=== PATIENT | female | born 1995 | race Hispanic/Latino ===

== ENCOUNTER 2018-10-29 22:17 | Emergency (ER) | payer SELFPAY ==
[2018-10-29] MEDS ORDERED: NA CHLORIDE 0.9% 1,000 ML ONE (23:03)
[2018-10-29 23:13] LABS: Absolute Lymphocytes (CBC) 2.3 K/uL (0.7-4.9); Absolute Neutrophil 7.3 K/uL (1.8-8.0); Basophils % 0.7 % (0-1.3); Eosinophils % 2.3 % (0-4.4); Hematocrit 36.5 % (36.0-45.0); Lymphocytes % 21.1 % (15.3-44.8); MPV 8.1 fL (7.6-11.3); Monocytes % 9.1 % (3.3-12.3); RBC Red Blood Cell Count 3.78 M/uL (3.86-4.86)
[2018-10-29 23:17] LABS: Protime INR 0.97
[2018-10-29 23:41] LABS: Barbiturates NEGATIVE (NEGATIVE); Benzodiazepines POSITIVE (NEGATIVE); Cocaine NEGATIVE (NEGATIVE); METHAMPHETAM NEGATIVE (NEGATIVE); Methadone NEGATIVE (NEGATIVE); Opiates POSITIVE (NEGATIVE); Phencyclidine NEGATIVE (NEGATIVE); THC Cannibis POSITIVE (NEGATIVE)
[2018-10-29 23:41] LABS: ALT/SGPT 29 U/L (12-78); AST/SGOT 17 U/L (15-37); Albumin 3.5 g/dL (3.4-5.0); Alkaline Phosphatase 64 U/L (45-117); BUN Blood Urea Nitrogen 9 mg/dL (7-18); Bicarbonate 34 mmol/L (21-32); Bilirubin Direct < 0.1 mg/dL (0-0.2); Bilirubin Total 0.1 mg/dL (0.2-1.0); Glucose Level 79 mg/dL (74-106); Potassium 3.9 mmol/L (3.5-5.1); Protein, Total 6.7 g/dL (6.4-8.2); Sodium Level 143 mmol/L (136-145)
[2018-10-29 23:49] LABS: Urine Blood NEGATIVE (NEG); Urine Glucose NEGATIVE (NEG); Urine Protein TRACE (NEG); Urine pH 8.5 (5.0-7.0)
--- NOTE | 2018-10-30 00:11 | ER ---
Nurse's Notes [facility] Name: Mare Almonte Age: 23 yrs Sex: Female : 1995 Arrival Date: 10/29/2018 Time: 22:18 Bed 4 Private MD: Diagnosis: Abuse of non-psychoactive substances;Urinary tract infection, site not specified Presentation: 10/29 22:28 Presenting complaint: Mother states: pt drowsy, overdose of unknown substance. pt ak1 states she took 1.5 bars xanax. pt also stated she took hydrocodone. pt [facility] patient. pt started day 2 of out patient rehab for cocaine, weed, soma, xanax. pt currently on zoloft 100mg, vistaril 25mg. Transition of care: patient was not received from another setting of care. Onset of symptoms is unknown. Risk Assessment: Do you want to hurt yourself or someone else? Patient reports desire/thoughts of hurting themselves or someone else. Provider notified. Care prior to arrival: None. 22:28 Method Of Arrival: Wheelchair ak1 22:28 Acuity: BEHZAD 2 ak1 23:00 Initial Sepsis Screen: Does the patient meet any 2 criteria? No. Patient's initial ea sepsis screen is negative. Does the patient have a suspected source of infection? No. Patient's initial sepsis screen is negative. Triage Assessment: 22:30 General: Appears drooling. Behavior is drowsy, listless. ak1 Historical: - Allergies: 22:30 No Known Allergies; ak1 - Home Meds: 22:30 Zoloft 100 mg Oral tab 1 tab once daily [Active]; Vistaril 25 mg Oral cap [Active]; ak1 - PMHx: 22:30 Depression; ak1 - PSHx: 22:30 None; ak1 - Immunization history:: Adult Immunizations unknown. - Social history:: Smoking status: Patient uses tobacco products, smokes one pack cigarettes per day. - Ebola Screening: : No symptoms or risks identified at this time. - Family history:: not pertinent. Screenin:00 Abuse screen: Denies threats or abuse. Nutritional screening: No deficits noted. ea Tuberculosis screening: No symptoms or risk factors identified. Fall Risk IV access (20 points). Assessment: 23:00 General: Appears in no apparent distress. Behavior is drowsy. Pain: Denies pain. Neuro: ea Level of Consciousness is responds to verbal stimuli. Oriented to person. Cardiovascular: Patient's skin is warm and dry. Respiratory: Airway is patent Respiratory effort is even, unlabored, Respiratory pattern is regular, symmetrical, snoring. GI: Abdomen is flat, Bowel sounds present X 4 quads. Derm: Skin is pink, warm \T\ dry. 10/30 00:50 Reassessment: Patient and/or family updated on plan of care and expected duration. Pain ea level reassessed. Pt resting with eyes closed, awakes with verbal stimuli. No s/s of pain or discomfort noted at this time. 01:18 Reassessment: Patient and/or family updated on plan of care and expected duration. Pain ea level reassessed. Patient is alert, oriented x 3, equal unlabored respirations, skin warm/dry/pink. Discharge instructions given to patient and family, verbalized the understanding of instruction. Patient states symptoms have improved. Psych: 10/29 23:35 Subjective: Pt denies trying to hurt self. Objective: Patient is Groggy Speech is slow, ea slurred. Interventions: Removed personal items and placed in bag. Patient placed in hospital gown. Searched person for dangerous items. Suicide Risk Assessment: Sad Person Scale: Sex of patient: Female: Score 0 points. Age of patient: Score 1 point if patient 15-34. Substance Abuse: Score 1 point if patient abuses alcohol or drugs. Social Support: Score 0 if social support is present/available. Safety Checks: Personal items have been removed. Door is open. Visitors are present. personal items given to family. pt reports she took a Xanax, denies other substance abuse. Vital Signs: 22:30 BP 91 / 59; Pulse 78; Resp 14; Temp 97.2(TE); Pulse Ox 98% on R/A; Weight 56.7 kg (R); ak1 Height 5 ft. 4 in. (162.56 cm) (R); 23:00 BP 113 / 61; Pulse 67; Resp 16; Pulse Ox 96% on R/A; ea 10/30 00:52 BP 103 / 67; Pulse 74; Resp 16; Pulse Ox 96% on R/A; ea 01:21 BP 116 / 68; Pulse 70; Resp 18; Temp 98(O); Pulse Ox 97% on R/A; ea 10/29 22:30 Body Mass Index 21.46 (56.70 kg, 162.56 cm) ak1 ED Course: 10/29 22:18 Patient arrived in ED. am2 22:30 Triage completed. ak1 22:30 Arm band placed on Patient placed in an exam room, Patient notified of wait time. ak1 22:38 Cory Garcia MD is Attending Physician. diana 22:50 Sally Strickland, AMEBR is Primary Nurse. ea 23:00 Patient has correct armband on for positive identification. Placed in gown. Bed in low ea position. Call light in reach. Side rails up X2. campus monitor on. Pulse ox on. NIBP on. Sitter at bedside. 23:00 Inserted saline lock: 20 gauge in left antecubital area, using aseptic technique. Blood ea collected. 23:15 Straight cath inserted, using sterile technique, 16 Fr. Specimen obtained. Returned ea clear yellow urine. Patient tolerated well. 02 00:54 No provider procedures requiring assistance completed. ea 01:18 IV discontinued, intact, bleeding controlled, No redness/swelling at site. Pressure ea dressing applied. Administered Medications: 10/29 23:00 Drug: NS 0.9% 1000 ml Route: IV; Rate: 1 bolus; Site: right antecubital; ea 10/30 00:53 Follow up: Response: No adverse reaction; IV Status: Completed infusion; IV Intake: ea 1000ml 00:30 Drug: Rocephin - (cefTRIAXone) 1 grams Route: IVPB; Infused Over: 30 mins; Site: left ea antecubital; 01:22 Follow up: Response: No adverse reaction; IV Status: Completed infusion ea Intake: 00:53 IV: 1000ml; Total: 1000ml. ea Outcome: 00:10 Discharge ordered by . diana 01:19 Discharged to home via wheelchair, with family. ea 01:19 Condition: improved 01:19 Discharge instructions given to family, Instructed on discharge instructions, follow up and referral plans. medication usage, Demonstrated understanding of instructions, follow-up care, medications. 01:22 Patient left the ED. ea Signatures: Cory Garcia MD MD cha Krenek, Amber, RN RN ak1 Angelina Morgan am2 Sally Strickland RN RN ea Corrections: (The following items were deleted from the chart) 01:21 01:18 Reassessment: Patient and/or family updated on plan of care and expected ea duration. Pain level reassessed. Patient is alert, oriented x 3, equal unlabored respirations, skin warm/dry/pink. Patient states symptoms have improved. ea
--- NOTE | 2018-10-30 00:12 | EDPHYS ---
Physician Documentation [facility] Name: Mare Almonte Age: 23 yrs Sex: Female : 1995 Arrival Date: 10/29/2018 Time: 22:18 Bed 4 Private MD: ED Physician Cory Garcia HPI: 10/29 22:48 This 23 yrs old Female presents to ER via Wheelchair with complaints of diana Suicidal Ideation, Possible Overdose. 22:48 The patient presents to the emergency department with anxiety, depression, a history of diana substance abuse, Type: arron, bars. Onset: The symptoms/episode began/occurred just prior to arrival. Past psychiatric history: Prior diagnosis: depression, Psychiatric medications include: Zoloft. Associated signs and symptoms: The patient has no apparent associated signs or symptoms. Severity of symptoms: At their worst the symptoms were mild in the emergency department the symptoms are unchanged. The patient has experienced similar episodes in the past, multiple times. Historical: - Allergies: 22:30 No Known Allergies; ak1 - Home Meds: 22:30 Zoloft 100 mg Oral tab 1 tab once daily [Active]; Vistaril 25 mg Oral cap [Active]; ak1 - PMHx: 22:30 Depression; ak1 - PSHx: 22:30 None; ak1 - Immunization history:: Adult Immunizations unknown. - Social history:: Smoking status: Patient uses tobacco products, smokes one pack cigarettes per day. - Ebola Screening: : No symptoms or risks identified at this time. - Family history:: not pertinent. ROS: 22:48 Constitutional: Negative for fever, chills, and weight loss, Eyes: Negative for injury, diana pain, redness, and discharge, ENT: Negative for injury, pain, and discharge, Neck: Negative for injury, pain, and swelling, Cardiovascular: Negative for chest pain, palpitations, and edema, Respiratory: Negative for shortness of breath, cough, wheezing, and pleuritic chest pain, Abdomen/GI: Negative for abdominal pain, nausea, vomiting, diarrhea, and constipation, Back: Negative for injury and pain, : Negative for injury, bleeding, discharge, and swelling, MS/Extremity: Negative for injury and deformity, Skin: Negative for injury, rash, and discoloration, Neuro: Negative for headache, weakness, numbness, tingling, and seizure, Allergy/Immunology: Negative for hives, rash, and allergies, Endocrine: Negative for neck swelling, polydipsia, polyuria, polyphagia, and marked weight changes, Hematologic/Lymphatic: Negative for swollen nodes, abnormal bleeding, and unusual bruising. 22:48 Psych: Positive for anxiety, depression, drug dependence. Exam: 22:48 Constitutional: This is a well developed, well nourished patient who is awake, alert, diana and in no acute distress. Head/Face: Normocephalic, atraumatic. Eyes: Pupils equal round and reactive to light, extra-ocular motions intact. Lids and lashes normal. Conjunctiva and sclera are non-icteric and not injected. Cornea within normal limits. Periorbital areas with no swelling, redness, or edema. ENT: Nares patent. No nasal discharge, no septal abnormalities noted. Tympanic membranes are normal and external auditory canals are clear. Oropharynx with no redness, swelling, or masses, exudates, or evidence of obstruction, uvula midline. Mucous membranes moist. Neck: Trachea midline, no thyromegaly or masses palpated, and no cervical lymphadenopathy. Supple, full range of motion without nuchal rigidity, or vertebral point tenderness. No Meningismus. Chest/axilla: Normal chest wall appearance and motion. Nontender with no deformity. No lesions are appreciated. Cardiovascular: Regular rate and rhythm with a normal S1 and S2. No gallops, murmurs, or rubs. Normal PMI, no JVD. No pulse deficits. Respiratory: Lungs have equal breath sounds bilaterally, clear to auscultation and percussion. No rales, rhonchi or wheezes noted. No increased work of breathing, no retractions or nasal flaring. Abdomen/GI: Soft, non-tender, with normal bowel sounds. No distension or tympany. No guarding or rebound. No evidence of tenderness throughout. Back: No spinal tenderness. No costovertebral tenderness. Full range of motion. Female : Normal external genitalia. Skin: Warm, dry with normal turgor. Normal color with no rashes, no lesions, and no evidence of cellulitis. MS/ Extremity: Pulses equal, no cyanosis. Neurovascular intact. Full, normal range of motion. Psych: Awake, alert, with orientation to person, place and time. Behavior, mood, and affect are within normal limits. 22:48 Neuro: Orientation: is normal, appropriate for stated age, slow, Mentation: slow to respond, Memory: immediate memory is intact, Cranial nerves: grossly normal, is grossly normal based on the patient's age, no acute changes, Cerebellar function: is grossly normal based on the patient's age, no acute changes, Motor: moves all fours, Sensation: no obvious gross deficits, appropriate Gait: not tested. Deep tendon reflexes are 2+ (normal) in the bilateral brachioradialis, bicep, tricep and patellar and Achilles tendons. Vital Signs: 22:30 BP 91 / 59; Pulse 78; Resp 14; Temp 97.2(TE); Pulse Ox 98% on R/A; Weight 56.7 kg (R); ak1 Height 5 ft. 4 in. (162.56 cm) (R); 23:00 BP 113 / 61; Pulse 67; Resp 16; Pulse Ox 96% on R/A; ea 10/30 00:52 BP 103 / 67; Pulse 74; Resp 16; Pulse Ox 96% on R/A; ea 01:21 BP 116 / 68; Pulse 70; Resp 18; Temp 98(O); Pulse Ox 97% on R/A; ea 10/29 22:30 Body Mass Index 21.46 (56.70 kg, 162.56 cm) ak1 MDM: 10/29 22:38 Patient medically screened. [facility] 22:51 Data reviewed: vital signs, nurses notes, lab test result(s), EKG, radiologic studies, [facility] CT scan, plain films. 10/29 22:48 Order name: Acetaminophen; Complete Time: 00:08 [facility] 10/29 22:48 Order name: Basic Metabolic Panel; Complete Time: 00:08 [facility] 10/29 22:48 Order name: CBC with Diff; Complete Time: 00:08 [facility] 10/29 22:48 Order name: ETOH Level; Complete Time: 00:08 [facility] 10/29 22:48 Order name: Hepatic Function; Complete Time: 00: [facility] 10/29 22:48 Order name: PT-INR; Complete Time: 00:08 [facility] 10/29 22:48 Order name: Ptt, Activated; Complete Time: 00:08 [facility] 10/29 22:48 Order name: Salicylate; Complete Time: 00:08 [facility] 10/29 22:48 Order name: Urine Drug Screen; Complete Time: 00:08 [facility] 10/29 23:22 Order name: Urine Dipstick--Ancillary (enter results); Complete Time: 00:08 [facility] 10/29 23:22 Order name: Urine --Ancillary (enter results); Complete Time: 00:08 [facility] 10/29 22:48 Order name: Urine Test (obtain specimen); Complete Time: 23:28 [facility] 10/29 22:48 Order name: EKG; Complete Time: 22:51 [facility] 10/29 22:48 Order name: EKG - Nurse/Tech; Complete Time: 22:51 [facility] 10/29 22:48 Order name: IV Saline Lock; Complete Time: 22:51 [facility] 10/29 22:48 Order name: Labs collected and sent; Complete Time: 23:29 [facility] 10/29 22:48 Order name: Urine Dipstick-Ancillary (obtain specimen); Complete Time: 23:29 [facility] Administered Medications: 23:00 Drug: NS 0.9% 1000 ml Route: IV; Rate: 1 bolus; Site: right antecubital; 10/30 00:53 Follow up: Response: No adverse reaction; IV Status: Completed infusion; IV Intake: ea 1000ml 00:30 Drug: Rocephin - (cefTRIAXone) 1 grams Route: IVPB; Infused Over: 30 mins; Site: left ea antecubital; 01:22 Follow up: Response: No adverse reaction; IV Status: Completed infusion ea Disposition: 10/30/18 00:10 Discharged to Home. Impression: Abuse of non-psychoactive substances, Urinary tract infection, site not specified. - Condition is Stable. - Discharge Instructions: Substance Use Disorder, Urinary Tract Infection, Adult, Urinary Tract Infection, Adult, [id number]. - Prescriptions for Bactrim DS 800- 160 mg Oral Tablet - take 1 tablet by ORAL route every 12 hours for 5 days; 10 tablet. - Medication Reconciliation Form, Thank You Letter, Antibiotic Education, Prescription Opioid Use form. - Follow up: Private Physician; When: 2 - 3 days; Reason: Recheck today's complaints, Continuance of care, Re-evaluation by your physician. - Problem is new. - Symptoms have improved. Signatures: Dispatcher [employer] oCry Pollard MD MD cha Krenek, Amber RN RN ak1 Sally Strickland RN RN bri Corrections: (The following items were deleted from the chart) 01:22 00:10 10/30/2018 00:10 Discharged to Home. Impression: Abuse of non-psychoactive ea substances; Urinary tract infection, site not specified. Condition is Stable. Forms are Medication Reconciliation Form, Thank You Letter, Antibiotic Education, Prescription Opioid Use. Follow up: Private Physician; When: 2 - 3 days; Reason: Recheck today's complaints, Continuance of care, Re-evaluation by your physician. Problem is new. Symptoms have improved. diana
[2018-10-30] MEDS ORDERED: CEFTRIAXONE/SWI 1gm 1 GM/10 ML SYR ONE (00:39)
--- NOTE | 2018-10-30 07:15 | EKG ---
Test Date: 2018-10-29 Test Time: 23:19:56 Instructor Of Education: CHITO MEASUREMENT RESULTS: Intervals: Rate: 70 MS: 172 QRSD: 88 QT: 412 QTc: 444 Lamar: P: 55 MS: 172 QRS: 77 T: 27 INTERPRETIVE STATEMENTS: Normal sinus rhythm Normal ECG No previous ECG available for comparison Electronically Signed On 10-30-18 07:14:54 EMPLOYEE RELATIONS ADVISOR by Adrian Garcia
== END 2018-10-30 01:22 | disposition home or self-care (01) ==
LOC: ER 22:17
DX: R45.851 Suicidal ideations (principal); F55.8 Abuse of other non-psychoactive substances; N39.0 Urinary tract infection, site not specified; F32.9 Major depressive disorder, single episode, unspecified
CPT/HCPCS: 36415; 51702; 80048; 80076; 80307; 80320; 80329; 81003; 81025; 85025; 85610; 85730; 93005; 96361; 96365; 99285; J0696; J7030

== ENCOUNTER 2019-01-11 07:58 | Emergency (ER) | payer SELFPAY ==
[2019-01-11] MEDS ORDERED: DEXAMETHASONE 10 MG/ML VIAL ONE (08:27)
[2019-01-11] MEDS ORDERED: MAGNE/ALUM HYDROXD 30 ML UCUP ONE (08:27)
[2019-01-11] MEDS ORDERED: IBUPROFEN 400 MG TAB ONE (08:28)
[2019-01-11] MEDS ORDERED: LIDOCAINE VISCOUS 2% SOLN 15 ML UDC ONE (08:28)
[2019-01-11] MEDS ORDERED: NA CHLORIDE 0.9% 1,000 ML ONE (08:58)
--- NOTE | 2019-01-11 09:49 | ER ---
Nurse's Notes [facility] Name: Mare Almonte Age: 23 yrs Sex: Female : 1995 Arrival Date: 01/11/2019 Time: 08:00 Bed 14 Private MD: Diagnosis: Acute tonsillitis Presentation: 01/11 08:07 Presenting complaint: Patient states: i had this sore throat for 3 days now and i hj noticed the R side of my neck is swollen; reports fever; takes gabapentin for back pain;. Transition of care: patient was not received from another setting of care. Onset of symptoms was January 11, 2019. Risk Assessment: Do you want to hurt yourself or someone else? Patient reports no desire to harm self or others. Initial Sepsis Screen: Does the patient meet any 2 criteria? Temp <36.0*C (96.8*F)) or > 38.3*C (100.9*F). Yes Does the patient have a suspected source of infection? Yes:. Care prior to arrival: None. 08:07 Method Of Arrival: Ambulatory 08:07 Acuity: BEHZAD 4 hj Triage Assessment: 08:11 General: Appears in no apparent distress. uncomfortable, Behavior is calm, cooperative, hj appropriate for age. 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 - Social history:: Smoking status: Patient uses tobacco products, Patient uses alcohol. - Ebola Screening: : Patient negative for fever greater than or equal to 101.5 degrees Fahrenheit, and additional compatible Ebola Virus Disease symptoms Patient denies exposure to infectious person Patient denies travel to an Ebola-affected area in the 21 days before illness onset. Screenin:10 Abuse screen: Denies threats or abuse. Denies injuries from another. Nutritional hj screening: No deficits noted. Tuberculosis screening: No symptoms or risk factors identified. Fall Risk None identified. Assessment: 08:11 Pain: Complains of pain in throat. Respiratory: Airway is patent Respiratory effort is hj even, unlabored, Respiratory pattern is regular, symmetrical, EENT: 08:11 General: Appears in no apparent distress. uncomfortable, Behavior is calm, cooperative, hj appropriate for age. Neuro: Level of Consciousness is awake, alert, obeys commands, Oriented to person, place, time, situation, Appropriate for age. Cardiovascular: Capillary refill < 3 seconds Patient's skin is warm and dry. GI: No signs and/or symptoms were reported involving the gastrointestinal system. : No signs and/or symptoms were reported regarding the genitourinary system. EENT: Throat has enlarged tonsils. Derm: No signs and/or symptoms reported regarding the dermatologic system. Musculoskeletal: No signs and/or symptoms reported regarding the musculoskeletal system. Vital Signs: 08:06 BP 107 / 67; Pulse 101; Resp 18; Temp 101.8(TE); Pulse Ox 98% on R/A; Weight 58.97 kg; hj Height 5 ft. 3 in. (160.02 cm); Pain 10/10; 08:32 BP 111 / 61; Pulse 98; Resp 18; Pulse Ox 98% on R/A; hj 09:21 BP 97 / 63; Pulse 85; Resp 18; Temp 98.8(TE); Pulse Ox 100% on R/A; hj 08:06 Body Mass Index 23.03 (58.97 kg, 160.02 cm) ED Course: 08:00 Patient arrived in ED. mr 08:02 [facility]C [facility]. kb 08:02 Gilda Esparza MD is Attending Physician. kb 08:02 Skyler Le, AMBER is Primary Nurse. hj 08:08 Triage completed. hj 08:11 Arm band placed on right wrist. hj 08:11 Patient has correct armband on for positive identification. Placed in gown. Bed in low hj position. Call light in reach. Adult w/ patient. 08:22 Strep Sent. hj 08:47 Initial lab(s) drawn, by me, sent to lab. Inserted saline lock: 20 gauge in right dh3 antecubital area, using aseptic technique. Blood collected. 10:10 No provider procedures requiring assistance completed. intact, bleeding controlled, No hj redness/swelling at site. Pressure dressing applied. Administered Medications: 08:13 Drug: GI Cocktail without - (Maalox Suspension 30 ml, Lidocaine Liquid 2 % 15 hj ml) Route: PO; 08:41 Follow up: Response: No adverse reaction hj 08:13 Drug: Ibuprofen 800 mg Route: PO; hj 08:41 Follow up: Response: No adverse reaction hj 08:13 Drug: Decadron 10 mg Route: IM; Site: right deltoid; hj 08:40 Follow up: Response: No adverse reaction hj 08:48 Drug: NS 0.9% 1000 ml Route: IV; Rate: 1000 ml; Site: right antecubital; hj 09:50 Follow up: IV Status: Completed infusion; IV Intake: 1000ml hj 09:47 Drug: Augmentin 875 mg Route: PO; hj 10:01 Follow up: Response: No adverse reaction hj Intake: 09:50 IV: 1000ml; Total: 1000ml. Outcome: 09:48 Discharge ordered by . kb 10:10 Discharged to home ambulatory. hj 10:10 Condition: stable 10:10 Discharge instructions given to patient, Instructed on discharge instructions, follow up and referral plans. medication usage, Demonstrated understanding of instructions, follow-up care, medications, Prescriptions given X 2. 10:11 Patient left the ED. Signatures: Renetta Ramirez, STEFF DAVID-Yessica Patel Henry, RN RN Delicia Irby 3 Corrections: (The following items were deleted from the chart) 09:22 09:21 Temp 98.8F Temporal; hj
--- NOTE | 2019-01-11 09:49 | EDPHYS ---
Physician Documentation [facility] Name: Mare Almonte Age: 23 yrs Sex: Female : 1995 Arrival Date: 01/11/2019 Time: 08:00 Bed 14 Private MD: ED Physician Gidla Esparza HPI: 01/11 09:37 This 23 yrs old Female presents to ER via Ambulatory with complaints of Sore kb Throat, Headache. 09:37 The patient presents with sore throat. The patient describes throat pain as constant. kb Onset: The symptoms/episode began/occurred 3 day(s) ago. Severity of symptoms: At their worst the symptoms were moderate, in the emergency department the symptoms are unchanged. Modifying factors: The symptoms are alleviated by nothing, the symptoms are aggravated by swallowing, Patient's oral intake status: good. Associated signs and symptoms: Pertinent positives: fever, flu-like symptoms, myalgias, Sore throat. The patient has not experienced similar symptoms in the past. The patient has not recently seen a physician. [employer]: 08:06 LMP N/A - control method hj Historical: - Allergies: 08:10 No Known Allergies; hj - Home Meds: 08:10 Vistaril 25 mg Oral cap [Active]; gabapentin oral oral [Active]; Zoloft 100 mg Oral tab hj 1 tab once daily [Active]; - PMHx: 08:10 Depression; Back pain; hj - PSHx: 08:10 None; hj - Immunization history:: Adult Immunizations up to date. - Social history:: Smoking status: Patient uses tobacco products, Patient uses alcohol. - Ebola Screening: : Patient negative for fever greater than or equal to 101.5 degrees Fahrenheit, and additional compatible Ebola Virus Disease symptoms Patient denies exposure to infectious person Patient denies travel to an Ebola-affected area in the 21 days before illness onset. ROS: 09:35 Neck: Negative for injury, pain, and swelling, Cardiovascular: Negative for chest pain, kb palpitations, and edema, Respiratory: Negative for shortness of breath, cough, wheezing, and pleuritic chest pain, Abdomen/GI: Negative for abdominal pain, nausea, vomiting, diarrhea, and constipation, MS/Extremity: Negative for injury and deformity, Skin: Negative for injury, rash, and discoloration. 09:35 Constitutional: Positive for body aches, chills, fatigue, fever, malaise, Negative for poor PO intake, weight loss. 09:35 ENT: Positive for sore throat. 09:35 Neuro: Positive for headache. Exam: 09:36 Constitutional: This is a well developed, well nourished patient who is awake, alert, kb and in no acute distress. Head/Face: Normocephalic, atraumatic. Chest/axilla: Normal chest wall appearance and motion. Nontender with no deformity. No lesions are appreciated. Cardiovascular: Regular rate and rhythm with a normal S1 and S2. No gallops, murmurs, or rubs. Normal PMI, no JVD. No pulse deficits. Respiratory: Lungs have equal breath sounds bilaterally, clear to auscultation and percussion. No rales, rhonchi or wheezes noted. No increased work of breathing, no retractions or nasal flaring. Abdomen/GI: Soft, non-tender, with normal bowel sounds. No distension or tympany. No guarding or rebound. No evidence of tenderness throughout. Skin: Warm, dry with normal turgor. Normal color with no rashes, no lesions, and no evidence of cellulitis. MS/ Extremity: Pulses equal, no cyanosis. Neurovascular intact. Full, normal range of motion. Neuro: Awake and alert, GCS 15, oriented to person, place, time, and situation. Cranial nerves II-XII grossly intact. Motor strength 5/5 in all extremities. Sensory grossly intact. Cerebellar exam normal. Normal gait. 09:36 ENT: External ear(s): are unremarkable, Ear canal(s): are normal, TM's: are normal, Nose: is normal, Mouth: is normal, Posterior pharynx: Airway: normal, no evidence of obstruction, Tonsils: bilaterally enlarged, with erythema, with exudate, Uvula: normal, midline, swelling, that is moderate, erythema, that is marked, exudate, that is moderate. 09:37 Neck: Lymph nodes: lymphadenopathy is appreciated. kb Vital Signs: 08:06 BP 107 / 67; Pulse 101; Resp 18; Temp 101.8(TE); Pulse Ox 98% on R/A; Weight 58.97 kg; hj Height 5 ft. 3 in. (160.02 cm); Pain 10/10; 08:32 BP 111 / 61; Pulse 98; Resp 18; Pulse Ox 98% on R/A; hj 09:21 BP 97 / 63; Pulse 85; Resp 18; Temp 98.8(TE); Pulse Ox 100% on R/A; hj 08:06 Body Mass Index 23.03 (58.97 kg, 160.02 cm) hj MDM: 08:06 Patient medically screened. kb 09:36 Data reviewed: vital signs, nurses notes. Data interpreted: Pulse oximetry: on room air kb is 100 %. Interpretation: normal. Counseling: I had a detailed discussion with the patient and/or guardian regarding: the historical points, exam findings, and any diagnostic results supporting the discharge/admit diagnosis, lab results, the need for outpatient follow up, an ENT specialist, to return to the emergency department if symptoms worsen or persist or if there are any questions or concerns that arise at home. 09:48 ED course: Strep test negative, but will prescribe antibiotics based on exam findings. .kb 01/11 08:13 Order name: Strep; Complete Time: 08:37 kb 01/11 08:37 Order name: Throat Culture EDCO 01/11 08:38 Order name: [place] Screen Profile; Complete Time: 09:34 kb 01/11 08:44 Order name: IV Start; Complete Time: 08:47 kb Administered Medications: 08:13 Drug: GI Cocktail without - (Maalox Suspension 30 ml, Lidocaine Liquid 2 % 15 hj ml) Route: PO; 08:41 Follow up: Response: No adverse reaction hj 08:13 Drug: Ibuprofen 800 mg Route: PO; hj 08:41 Follow up: Response: No adverse reaction hj 08:13 Drug: Decadron 10 mg Route: IM; Site: right deltoid; hj 08:40 Follow up: Response: No adverse reaction hj 08:48 Drug: NS 0.9% 1000 ml Route: IV; Rate: 1000 ml; Site: right antecubital; hj 09:50 Follow up: IV Status: Completed infusion; IV Intake: 1000ml hj 09:47 Drug: Augmentin 875 mg Route: PO; hj 10:01 Follow up: Response: No adverse reaction Disposition: 17:16 Co-signature as Attending Physician, Gilda Esparza MD. ma2 Disposition: 01/11/19 09:48 Discharged to Home. Impression: Acute tonsillitis. - Condition is Stable. - Discharge Instructions: Tonsillitis, [id number], Strep Throat, [id number]. - Prescriptions for Augmentin 875- 125 mg Oral Tablet - take 1 tablet by ORAL route every 12 hours for 10 days; 20 tablet. Prednisone 20 mg Oral Tablet - take 1 tablet by ORAL route once daily for 5 days; 5 tablet. - Medication Reconciliation Form, Thank You Letter, Antibiotic Education, Prescription Opioid Use form. - Follow up: Emergency Department; When: As needed; Reason: Worsening of condition. Follow up: Private Physician; When: 2 - 3 days; Reason: Recheck today's complaints, Continuance of care, Re-evaluation by your physician. Signatures: Dispatcher [employer] EDMS Renetta Ramirez FNP-C FNP-Ckb Joaquin, Henry, RN RN Gilda Kirk MD MD ma2 Corrections: (The following items were deleted from the chart) 09:49 09:48 01/11/2019 09:48 Discharged to Home. Impression: Streptococcal pharyngitis. kb Condition is Stable. Forms are Medication Reconciliation Form, Thank You Letter, Antibiotic Education, Prescription Opioid Use. Follow up: Emergency Department; When: As needed; Reason: Worsening of condition. Follow up: Private Physician; When: 2 - 3 days; Reason: Recheck today's complaints, Continuance of care, Re-evaluation by your physician. kb 10:11 09:49 01/11/2019 09:48 Discharged to Home. Impression: Acute tonsillitis. Condition is hj Stable. Discharge Instructions: Strep Throat, [id number]. Prescriptions for Augmentin 875-125 mg Oral Tablet - take 1 tablet by ORAL route every 12 hours for 10 days; 20 tablet, Prednisone 20 mg Oral Tablet - take 1 tablet by ORAL route once daily for 5 days; 5 tablet. and Forms are Medication Reconciliation Form, Thank You Letter, Antibiotic Education, Prescription Opioid Use. Follow up: Emergency Department; When: As needed; Reason: Worsening of condition. Follow up: Private Physician; When: 2 - 3 days; Reason: Recheck today's complaints, Continuance of care, Re-evaluation by your physician. kb
[2019-01-11] MEDS ORDERED: AMOX/K CLAV 875 MG TAB ONE (10:12)
[2019-01-11 10:27] VITALS: BP 97/63; TEMP 98.8; O2SAT 100
== END 2019-01-11 10:11 | disposition home or self-care (01) ==
LOC: ER 07:58
DX: J03.90 Acute tonsillitis, unspecified (principal); M54.5 Low back pain; F32.9 Major depressive disorder, single episode, unspecified
CPT/HCPCS: 36415; 86308; 87070; 87081; 96360; 96372; 99284; J1100; J7030

== ENCOUNTER 2020-07-28 16:54 | Emergency (ER) | payer SELFPAY ==
[2020-07-28] MEDS ORDERED: PANTOPRAZOLE 40 MG INJ ONE (19:18)
[2020-07-28] MEDS ORDERED: NA CHLORIDE 0.9% 1,000 ML ONE (19:18)
[2020-07-28] MEDS ORDERED: ONDANSETRON 4 MG/2 ML VIAL ONE (19:18)
[2020-07-28] MEDS ORDERED: DIPHENHYDRAMINE 50 MG/ML VIAL ONE (19:18)
[2020-07-28 19:22] LABS: Absolute Lymphocytes (CBC) 1.6 K/uL (0.7-4.9); Basophils % 0.6 % (0-1.3); Hematocrit 42.8 % (36.0-45.0); Lymphocytes % 11.6 % (15.3-44.8); MPV 7.9 fL (7.6-11.3); RBC Red Blood Cell Count 4.56 M/uL (3.86-4.86)
[2020-07-28 19:27] LABS: Protime INR 1.2
[2020-07-28 19:36] LABS: Barbiturates NEGATIVE (NEGATIVE); Benzodiazepines NEGATIVE (NEGATIVE); Cocaine NEGATIVE (NEGATIVE); METHAMPHETAM NEGATIVE (NEGATIVE); Methadone NEGATIVE (NEGATIVE); Opiates POSITIVE (NEGATIVE); Phencyclidine NEGATIVE (NEGATIVE); THC Cannibis POSITIVE (NEGATIVE)
[2020-07-28 19:38] LABS: ALT/SGPT 22 U/L (12-78); AST/SGOT 15 U/L (15-37); Albumin 4.6 g/dL (3.4-5.0); Alkaline Phosphatase 66 U/L (45-117); BUN Blood Urea Nitrogen 10 mg/dL (7-18); Bicarbonate 24 mmol/L (21-32); Bilirubin Direct 0.1 mg/dL (0-0.2); Bilirubin Total 0.5 mg/dL (0.2-1.0); Glucose Level 88 mg/dL (74-106); Lipase 65 U/L (73-393); Magnesium 2.3 mg/dL (1.8-2.4); Potassium 3.2 mmol/L (3.5-5.1); Protein, Total 9.1 g/dL (6.4-8.2); Sodium Level 137 mmol/L (136-145)
[2020-07-28 19:59] LABS: Urine Blood 2+ (NEG); Urine Glucose NEGATIVE (NEG); Urine Protein 2+ (NEG); Urine Specific Gravity >1.030 (1.005-1.030); Urine pH 5.5 (5.0-7.0)
[2020-07-28 19:59] LABS: Urine Specific Gravity >1.030 (1.005-1.030)
--- NOTE | 2020-07-28 20:09 | RAD REPORT ---
EXAM DESCRIPTION: CT - Abdomen Pelvis W Contrast - 07/28/2020 7:49 pm CLINICAL HISTORY: Abdominal pain COMPARISON: 2013 TECHNIQUE: Computed axial tomography of the abdomen pelvis was obtained. 100 cc Isovue-300 was admin istered intravenously. Oral contrast was not requested which limits evaluation of bowel and appendix. All CT scans are performed using dose optimization technique as appropriate and may include automated exposure control or mA/KV adjustment according to patient size. FINDINGS: The liver, spleen, pancreas, adrenal and kidneys appear unremarkable. There is no evidence of diverticulitis. 2 centimeter dense structure within the left ovary likely a hemorrhagic cyst. Significant free fluid is not present The wall of the gastric fundus appears thickened IMPRESSION: Apparent thickening of the wall of the gastric fundus could be secondary to incomplete d istention, inflammation or mass. Follow-up recommended 2 centimeter dense structure within left ovary likely a hemorrhagic cyst. Significant free fluid is n ot present
[2020-07-28] MEDS ORDERED: PROMETHAZINE INJ 25 MG/ML AMP ONE (20:21)
[2020-07-28] MEDS ORDERED: MORPHINE 2 MG/ML SYR ONE (20:22)
--- NOTE | 2020-07-28 21:03 | ER ---
Nurse's Notes [facility] Name: Mare Almonte Age: 25 yrs Sex: Female : 1995 Arrival Date: 07/28/2020 Time: 16:57 Bed 5 Private MD: Diagnosis: Nausea and vomiting Presentation: 07/28 17:09 Chief complaint: Patient states: N/V x 5 days. Today, unable to tolerate fluids and ca1 blood tinge vomitus. Denies abdominal pain. Denies diarrhea. Denies constipation. Reports general weakness. Coronavirus screen: Client denies travel out of the [place] in the last 14 days. nausea, vomiting. Client presents with at least one sign or symptom that may indicate coronavirus-19. Standard/surgical mask placed on the client. Provider contacted for isolation considerations. The client denies any previous COVID testing. Ebola Screen: Patient negative for fever greater than or equal to 101.5 degrees Fahrenheit, and additional compatible Ebola Virus Disease symptoms Patient denies exposure to infectious person. Patient denies travel to an Ebola-affected area in the 21 days before illness onset. No symptoms or risks identified at this time. Initial Sepsis Screen: Does the patient meet any 2 criteria? No. Patient's initial sepsis screen is negative. Does the patient have a suspected source of infection? No. Patient's initial sepsis screen is negative. Risk Assessment: Do you want to hurt yourself or someone else? Patient reports no desire to harm self or others. Onset of symptoms was July 28, 2020. 17:09 Method Of Arrival: Ambulatory ca1 17:09 Acuity: BEHZAD 3 ca1 ENTRY TECH: 17:11 [facility] 06/2020 ca1 Historical: - Allergies: 17:11 No Known Allergies; ca1 - Home Meds: 17:11 None [Active]; ca1 - PMHx: 17:11 Back pain; Depression; ca1 - PSHx: 17:11 None; ca1 - Immunization history:: Adult Immunizations up to date, Flu vaccine is not up to date. - Social history:: Smoking status: Patient reports the use of cigarette tobacco products, smokes one-half pack cigarettes per day. Screenin:00 Abuse screen: Denies threats or abuse. Denies injuries from another. Nutritional sg screening: No deficits noted. Tuberculosis screening: No symptoms or risk factors identified. Never had TB. Fall Risk None identified. Assessment: 19:00 General: Appears in no apparent distress. well groomed, well developed, well nourished, sg Behavior is calm, cooperative, appropriate for age. Pain: Complains of pain in mid back area and epigastric area Quality of pain is described as aching. Neuro: Level of Consciousness is awake, alert, obeys commands, Oriented to person, place, time, Speech is normal. Cardiovascular: Patient's skin is warm and dry. Chest pain is denied. Respiratory: Airway is patent Respiratory effort is even, unlabored, Respiratory pattern is regular, symmetrical. GI: Abdomen is flat, non-distended, Reports upper abdominal pain, epigastric pain, nausea, vomiting. : No signs and/or symptoms were reported regarding the genitourinary system. EENT: No signs and/or symptoms were reported regarding the EENT system. Derm: Skin is pink, warm \T\ dry. Musculoskeletal: Circulation, motion, and sensation intact. Range of motion: intact in all extremities. 19:15 Reassessment: Patient appears in no apparent distress at this time. Patient and/or sg family updated on plan of care and expected duration. Pain level reassessed. awaiting lab results, awaiting CT scan at this time, pt has been medicated as ordered, pt family remains at bedside, will continue to monitor Patient states symptoms have not improved. Vital Signs: 17:09 BP 129 / 85; Pulse 78; Resp 19 S; Temp 97.3(TE); Pulse Ox 100% on R/A; Weight 56.7 kg ca1 (R); Height 5 ft. 3 in. (160.02 cm) (R); Pain 0/10; 21:00 BP 126 / 80; Pulse 77; Resp 18; Temp 97.4; Pulse Ox 100% on R/A; sg 17:09 Body Mass Index 22.14 (56.70 kg, 160.02 cm) ca1 ED Course: 16:57 Patient arrived in ED. ds1 17:11 Triage completed. ca1 17:11 Arm band placed on right wrist. ca1 17:14 Cory Cisneros PA is PHCP. cp 17:14 Cory Garcia MD is Attending Physician. cp 18:00 Urine collected: clean catch specimen, clear, addison colored. jp3 19:00 Patient has correct armband on for positive identification. Bed in low position. Call sg light in reach. Pulse ox on. NIBP on. Warm blanket given. Head of bed elevated. 19:02 Storm Neil, RN is Primary Nurse. sg 19:49 CT Abd/Pelvis - IV Contrast Only In Process Unspecified. EDMS 21:02 Jame Ham MD is Referral Physician. cp 21:20 No provider procedures requiring assistance completed. Patient did not have IV access sg during this emergency room visit. Administered Medications: 19:10 Drug: ProTONIX 40 mg Route: IVP; Site: right antecubital; sg 19:10 Drug: Zofran (Ondansetron) 4 mg Route: IVP; Site: right antecubital; sg 19:10 Drug: NS 0.9% 1000 ml Route: IV; Rate: 1 bolus; Site: right antecubital; sg 19:10 Drug: Benadryl 12.5 mg Route: IVP; Site: right antecubital; sg 20:12 Drug: Phenergan 12.5 mg Route: IVP; Site: right antecubital; rr5 20:14 Drug: morphine 2 mg {Note: rass 0.} Route: IVP; Site: right antecubital; rr5 21:08 Drug: Potassium Effervescent Tablet 50 mEq Route: PO; rr5 Outcome: 21:02 Discharge ordered by MD. cp 21:20 Discharged to home ambulatory, with family. sg 21:20 Condition: good 21:20 Discharge instructions given to patient, Instructed on discharge instructions, follow up and referral plans. no drinking with medication, medication usage, safety practices, Demonstrated understanding of instructions, follow-up care, medications, Prescriptions given X 3. 21:24 Patient left the ED. sg Signatures: Dispatcher [employer] EDVA Storm Neil, RN RN Sultana Barriga ds1 Cory Cisneros PA PA cp Denny Albert jp3 Jaya Stuart RN RN rr5 Analia Harris RN RN ca1
--- NOTE | 2020-07-28 21:03 | EDPHYS ---
Physician Documentation [facility] Name: Mare Almonte Age: 25 yrs Sex: Female : 1995 Arrival Date: 07/28/2020 Time: 16:57 Bed 5 Private MD: ED Physician Cory Garcia HPI: 07/28 18:45 This 25 yrs old Female presents to ER via Ambulatory with complaints of cp Nausea/Vomiting. 18:45 The patient presents to the emergency department with nausea, with "dry heaves", cp vomiting, that is intermittent, described as blood streaked, abdominal pain, of the upper abdomen. Onset: The symptoms/episode began/occurred 2 day(s) ago. Possible causes: unknown. Associated signs and symptoms: Pertinent negatives: diarrhea, fever. 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 - Social history:: Smoking status: Patient reports the use of cigarette tobacco products, smokes one-half pack cigarettes per day. ROS: 18:55 Eyes: Negative for injury, pain, redness, and discharge. cp 18:55 Constitutional: Positive for poor PO intake, Negative for body aches, chills, fever. 18:55 ENT: Negative for ear pain, sore throat, difficulty swallowing, difficulty handling secretions. 18:55 Cardiovascular: Negative for chest pain, palpitations. 18:55 Respiratory: Negative for cough, shortness of breath, wheezing. 18:55 Abdomen/GI: Positive for abdominal pain, nausea and vomiting, anorexia, hematemesis, Negative for diarrhea, constipation, black/tarry stool, rectal bleeding. 18:55 Back: Positive for radiated pain. 18:55 : Negative for urinary symptoms. 18:55 Neuro: Negative for altered mental status, headache, numbness, weakness. 18:55 All other systems are negative. Exam: 19:01 Head/Face: Normocephalic, atraumatic. cp 19:01 Constitutional: The patient appears in no acute distress, alert, awake, non-toxic, well developed, well nourished. 19:01 Eyes: Periorbital structures: appear normal, Conjunctiva: normal, no exudate, no injection, Sclera: no appreciated abnormality, Lids and lashes: appear normal, bilaterally. 19:01 ENT: External ear(s): are unremarkable, Nose: is normal, Mouth: Lips: moist, Oral mucosa: moist, Posterior pharynx: is normal, airway is patent. 19:01 Neck: ROM/movement: is normal, is supple, without pain, no range of motions limitations. 19:01 Chest/axilla: Inspection: normal, Palpation: is normal, no crepitus, no tenderness. 19:01 Cardiovascular: Rate: normal, Rhythm: regular. 19:01 Respiratory: the patient does not display signs of respiratory distress, Respirations: normal, no use of accessory muscles, no retractions, labored breathing, is not present, Breath sounds: are clear throughout, no decreased breath sounds, no stridor, no wheezing. 19:01 Abdomen/GI: Inspection: abdomen appears normal, Bowel sounds: active, all quadrants, Palpation: soft, in all quadrants, moderate abdominal tenderness, in the epigastric area, rebound tenderness, is not appreciated, involuntary guarding, is not appreciated. 19:01 Back: pain, that is mild, of the mid back area, ROM is normal. Vital Signs: 17:09 BP 129 / 85; Pulse 78; Resp 19 S; Temp 97.3(TE); Pulse Ox 100% on R/A; Weight 56.7 kg ca1 (R); Height 5 ft. 3 in. (160.02 cm) (R); Pain 0/10; 21:00 BP 126 / 80; Pulse 77; Resp 18; Temp 97.4; Pulse Ox 100% on R/A; sg 17:09 Body Mass Index 22.14 (56.70 kg, 160.02 cm) ca1 MDM: 18:36 Patient medically screened. cp 19:00 Differential diagnosis: gastritis, cholecystitis, pancreatitis, appendicitis, viral cp gastroenteritis, gastroenteritis. 21:01 Data reviewed: vital signs, nurses notes, lab test result(s), radiologic studies, CT cp scan, and as a result, I will discharge patient. 21:01 Special discussion: Based on the patient's Hx, exam, and Dx evaluation, there is no cp indication for emergent surgery or inpatient Tx. It is understood by the patient/guardian that if the Sx's persist or worsen they need to return immediately for re-evaluation. 21:01 Counseling: I had a detailed discussion with the patient and/or guardian regarding: the cp historical points, exam findings, and any diagnostic results supporting the discharge/admit diagnosis, lab results, radiology results. Response to treatment: the patient's symptoms have markedly improved after treatment, patient is well hydrated. and as a result, I will discharge patient. 07/28 18:40 Order name: Basic Metabolic Panel; Complete Time: 19:40 07/28 19:40 Interpretation: Normal except: K 3.2. 07/28 18:40 Order name: CBC with Diff; Complete Time: 19:40 07/28 19:40 Interpretation: Normal except: WBC 13.7; MCV 93.7; ELVIN% 81.3; LYM% 11.6; NEUT A 11.1. 07/28 18:40 Order name: Hepatic Function; Complete Time: 19:40 07/28 19:41 Interpretation: Normal except: TP 9.1; GLOB 4.5; A/G 1.0. 07/28 18:40 Order name: Lipase; Complete Time: 19:40 07/28 19:41 Interpretation: LIP 65; Reviewed. 07/28 18:40 Order name: Magnesium; Complete Time: 19:40 07/28 18:41 Order name: UDS; Complete Time: 19:40 07/28 18:41 Order name: PT-INR; Complete Time: 19:40 07/28 18:49 Order name: Urine Dipstick--Ancillary (enter results); Complete Time: 20:08 [facility] 07/28 18:50 Order name: Urine --Ancillary (enter results); Complete Time: 20:08 [facility] 07/28 18:59 Order name: CT Abd/Pelvis - IV Contrast Only; Complete Time: 20:28 07/28 18:40 Order name: IV Saline Lock; Complete Time: 19:15 07/28 18:40 Order name: Labs collected and sent; Complete Time: 19:15 07/28 18:40 Order name: Urine Dipstick-Ancillary (obtain specimen); Complete Time: 18:44 07/28 18:40 Order name: Urine Test (obtain specimen); Complete Time: 18:44 cp 07/28 20:29 Order name: PO challenge; Complete Time: 21:08 cp Administered Medications: 19:10 Drug: ProTONIX 40 mg Route: IVP; Site: right antecubital; sg 19:10 Drug: Zofran (Ondansetron) 4 mg Route: IVP; Site: right antecubital; sg 19:10 Drug: NS 0.9% 1000 ml Route: IV; Rate: 1 bolus; Site: right antecubital; sg 19:10 Drug: Benadryl 12.5 mg Route: IVP; Site: right antecubital; sg 20:12 Drug: Phenergan 12.5 mg Route: IVP; Site: right antecubital; rr5 20:14 Drug: morphine 2 mg {Note: rass 0.} Route: IVP; Site: right antecubital; rr5 21:08 Drug: Potassium Effervescent Tablet 50 mEq Route: PO; rr5 Disposition: 07/29 06:51 Co-signature as Attending Physician, Cory Garcia MD I agree with the assessment and diana plan of care. Disposition: 07/28/20 21:02 Discharged to Home. Impression: Nausea and vomiting. - Condition is Stable. - Discharge Instructions: Nausea and Vomiting, Adult. - Prescriptions for Carafate 1 gram Oral Tablet - take 1 tablet by ORAL route 4 times per day take on an empty stomach, beginning on waking and last dose at bedtime. dissolve tablet in small amount warm water prior to ingestion; 100 tablet. Protonix 40 mg Oral Tablet - take 1 tablet by ORAL route once daily; 30 tablet. Zofran 4 mg Oral Tablet - take 1 tablet by ORAL route every 12 hours As needed; 20 tablet. - Work release form, Medication Reconciliation Form, Thank You Letter, Antibiotic Education, Prescription Opioid Use form. - Follow up: Jame Ham MD; When: 2 - 3 days; Reason: Recheck today's complaints. - Problem is new. - Symptoms have improved. Signatures: Dispatcher [employer] EDMS Storm Neil RN RN sg Anderson, Corey, MD MD cha Page, Corey, PA PA cp Roque, Raymond RN RN rr5 Analia Harris RN RN ca1 Corrections: (The following items were deleted from the chart) 07/28 21:24 21:02 07/28/2020 21:02 Discharged to Home. Impression: Nausea and vomiting. Condition sg is Stable. Forms are Medication Reconciliation Form, Thank You Letter, Antibiotic Education, Prescription Opioid Use. Follow up: Jame Ham; When: 2 - 3 days; Reason: Recheck today's complaints. Problem is new. Symptoms have improved. cp
[2020-07-28] MEDS ORDERED: POTASSIUM 25 MEQ EFFERV TAB ONE (21:15)
[2020-07-29 03:54] VITALS: BP 129/85; TEMP 97.3; O2SAT 100
== END 2020-07-28 21:24 | disposition home or self-care (01) ==
LOC: ER 16:54
DX: R11.2 Nausea with vomiting, unspecified (principal); F17.210 Nicotine dependence, cigarettes, uncomplicated
CPT/HCPCS: 36415; 74177; 80048; 80076; 80307; 81003; 81025; 83690; 83735; 85025; 85610; 96374; 96375; 99284; C9113; J1200; J2270; J2405; J2550; J7030; Q9967

== ENCOUNTER 2021-02-19 13:25 | Emergency (ER) | payer OTHER, SELFPAY ==
--- OUTSIDE RECORDS SUMMARY | 2021-02-19 13:27 | XMS REPORT | Continuity of Care Document ---
:1995 Author Organization [facility] t Address [address] [place] [address] Care Team Providers Name Role Phone Adum Astrid BUTLER Attending Clinician Ultrasound Attending Clinician Unavailable Problems This patient has no known problems. Allergies, Adverse Reactions, Alerts This patient has no known allergies or adverse reactions. Medications This patient has no known medications. Procedures This patient has no known procedures. Encounters Start End Encounter Admission Attending Care Care Encounter Source Date/Time Date/Time Type Type Clinicians Facility Department ID 2021-02-19 2021-02-19 [id number] 00:00:00 00:00:00 Kim Cannon [id number] [place] [id number] Professio [id number] [address] 2021-02-12 2021-02-12 Routine Ad, [id number] 10:34:21 11:08:44 Kim Cannon [id number] Visit [place] [id number] Professio [phone] [address] 2021-01-29 2021-01-29 Telephone [id number] 00:00:00 00:00:00 Kim Cannon [id number] [place] [id number] Professio [id number] [address] 2021-01-15 2021-01-15 Routine Adum, [facility] [id number] 10:25:05 11:25:51 Kimsarai [place] [id number] Visit [place] [id number] Professio [phone] [address] 2021-01-06 2021-01-06 Equipment Engineer Ultrasound, [facility] [id number] 09:40:08 10:43:28 Visit [facility] [employer] [id number] [facility] [id number] MATERNAL [phone] & CHILD [address] [place] [address] 2021-01-04 2021-01-04 Telephone Adum, [facility] [id number] 00:00:00 00:00:00 Kim Cannon [id number] [place] [id number] Professio [phone] [address] 2021-01-01 2021-01-01 Initial Adum, [place] [id number] 09:58:30 11:54:41 Kim Cannon [id number] Visit [place] [id number] Professio [phone] [address] Results This patient has no known results.
[2021-02-19 15:02] LABS: SARS-COV-2 RT PCR NEGATIVE (NEGATIVE)
--- NOTE | 2021-02-19 15:18 | EDPHYS ---
Physician Documentation [facility] Name: Mare Almonte Age: 26 yrs Sex: Female : 1995 Arrival Date: 02/19/2021 Time: 13:28 Bed Waiting Private MD: ED Physician Vineet Krishna HPI: 02/19 15:45 This 26 yrs old Female presents to ER via Ambulatory with complaints of Cough, jr8 Fever, Sore Throat, Vomiting. 15:45 Severity of symptoms: At their worst the symptoms were mild. Modifying factors: The jr8 symptoms are alleviated by OTC cold preparation, Tylenol, the symptoms are aggravated by nothing. Associated signs and symptoms: The patient has no apparent associated signs or symptoms. The patient has not experienced similar symptoms in the past. The patient has not recently seen a physician. Stated that she wanted to be tested for COVID because she is 30 weeks and has not been vaccinated and needs it for next OB appointment . 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 - Social history:: Smoking status: Patient denies any tobacco usage or history of. ROS: 15:45 Constitutional: Positive for fever. jr8 15:45 Respiratory: Positive for cough, Negative for dyspnea on exertion, shortness of breath, sputum production, wheezing. 15:45 Abdomen/GI: Positive for vomiting, Negative for abdominal pain, nausea, diarrhea. 15:45 All other systems are negative. Exam: 15:45 Eyes: Pupils equal round and reactive to light, extra-ocular motions intact. Lids and jr8 lashes normal. Conjunctiva and sclera are non-icteric and not injected. Cornea within normal limits. Periorbital areas with no swelling, redness, or edema. ENT: Nares patent. No nasal discharge, no septal abnormalities noted. Tympanic membranes are normal and external auditory canals are clear. Oropharynx with no redness, swelling, or masses, exudates, or evidence of obstruction, uvula midline. Mucous membranes moist. Neck: Trachea midline, no thyromegaly or masses palpated, and no cervical lymphadenopathy. Supple, full range of motion without nuchal rigidity, or vertebral point tenderness. No Meningismus. Cardiovascular: Regular rate and rhythm with a normal S1 and S2. No gallops, murmurs, or rubs. Normal PMI, no JVD. No pulse deficits. Respiratory: Lungs have equal breath sounds bilaterally, clear to auscultation and percussion. No rales, rhonchi or wheezes noted. No increased work of breathing, no retractions or nasal flaring. Abdomen/GI: Soft, non-tender, with normal bowel sounds. No distension or tympany. No guarding or rebound. No evidence of tenderness throughout. Gavid in appearance Back: No spinal tenderness. No costovertebral tenderness. Full range of motion. Skin: Warm, dry with normal turgor. Normal color with no rashes, no lesions, and no evidence of cellulitis. MS/ Extremity: Pulses equal, no cyanosis. Neurovascular intact. Full, normal range of motion. Neuro: Awake and alert, GCS 15, oriented to person, place, time, and situation. Cranial nerves II-XII grossly intact. Motor strength 5/5 in all extremities. Sensory grossly intact. Cerebellar exam normal. Normal gait. Vital Signs: 13:42 BP 130 / 78; Pulse 96; Resp 18 S; Temp 98.5(TE); Pulse Ox 100% on R/A; Weight 65.77 kg jd3 (R); Height 5 ft. 3 in. (160.02 cm) (R); Pain 0/10; 15:17 BP 120 / 64; Pulse 77; Resp 16 S; Pulse Ox 100% on R/A; jd3 13:42 Body Mass Index 25.69 (65.77 kg, 160.02 cm) jd3 MDM: 15:17 Patient medically screened. rust 15:45 Data reviewed: vital signs, nurses notes, lab test result(s), and as a result, I will rust discharge patient. Data interpreted: Pulse oximetry: on room air is 100 %. Interpretation: normal. Counseling: I had a detailed discussion with the patient and/or guardian regarding: the historical points, exam findings, and any diagnostic results supporting the discharge/admit diagnosis, lab results, the need for outpatient follow up, an OB/Gyne specialist, to return to the emergency department if symptoms worsen or persist or if there are any questions or concerns that arise at home. 02/19 15:02 Order name: COVID-19/FLU A+B; Complete Time: 15:10 EDMS Administered Medications: No medications were administered Disposition: 18:48 Co-signature as Attending Physician, Vineet Krishna MD I agree with the assessment and kdr plan of care. Disposition: 02/19/21 15:18 Discharged to Home. Impression: Acute upper respiratory infection, unspecified, Vomiting. - Condition is Stable. - Discharge Instructions: Nausea and Vomiting, Adult, Upper Respiratory Infection, Adult. - Prescriptions for promethazine 25 mg Oral Tablet - take 1 tablet by ORAL route every 6 hours As needed; 20 tablet. - Medication Reconciliation Form, Thank You Letter, Antibiotic Education, Prescription Opioid Use form. - Follow up: Private Physician; When: 2 - 3 days; Reason: Recheck today's complaints, Continuance of care, Re-evaluation by your physician. - Problem is new. - Symptoms have improved. Signatures: Dispatcher [employer] EDPA Vineet Krishna MD MD kdr Kiet Perez PA PA jr8 Manuel Borrero RN RN jd3 Corrections: (The following items were deleted from the chart) 14:21 13:45 CORONAVIRUS+MR.LAB.BRZ ordered. [facility] EDPA 14:21 13:45 Influenza Screen (A \T\ B)+BA.LAB.BRZ ordered. [facility] EDPA 15:24 15:18 02/19/2021 15:18 Discharged to Home. Impression: Acute upper respiratory jd3 infection, unspecified; Vomiting. Condition is Stable. Forms are Medication Reconciliation Form, Thank You Letter, Antibiotic Education, Prescription Opioid Use. Follow up: Private Physician; When: 2 - 3 days; Reason: Recheck today's complaints, Continuance of care, Re-evaluation by your physician. Problem is new. Symptoms have improved. jr8
--- NOTE | 2021-02-19 15:18 | ER ---
Nurse's Notes [facility] Name: Mare Almonte Age: 26 yrs Sex: Female : 1995 Arrival Date: 02/19/2021 Time: 13:28 Bed Waiting Private MD: Diagnosis: Acute upper respiratory infection, unspecified;Vomiting Presentation: 02/19 13:39 Chief complaint: Patient states: "I am 30 weeks and I am having a sore throat jd3 and a fever. I have been controlling it with Mucinex. I have not been able to hold anything down. cough, fever- I am just worried and wanted to get tested for COVID.". Coronavirus screen: At this time, the client does not indicate any symptoms associated with coronavirus-19. Ebola Screen: Patient negative for fever greater than or equal to 101.5 degrees Fahrenheit, and additional compatible Ebola Virus Disease symptoms. Initial Sepsis Screen: Does the patient meet any 2 criteria? No. Patient's initial sepsis screen is negative. Does the patient have a suspected source of infection? No. Patient's initial sepsis screen is negative. Risk Assessment: Do you want to hurt yourself or someone else? Patient reports no desire to harm self or others. Onset of symptoms was February 19, 2021. 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 - Social history:: Smoking status: Patient denies any tobacco usage or history of. Screenin:16 Abuse screen: Denies threats or abuse. Nutritional screening: No deficits noted. jd3 Tuberculosis screening: No symptoms or risk factors identified. Fall Risk Ambulatory Aid- None/Bed Rest/Nurse Assist (0 pts). Gait- Normal/Bed Rest/Wheelchair (0 pts) Mental Status- Oriented to own ability (0 pts). Total Finn Fall Scale indicates No Risk (0-24 pts). Assessment: 15:14 General: Appears in no apparent distress. comfortable, Behavior is calm, cooperative, jd3 appropriate for age. Pain: Complains of pain in throat Quality of pain is described as aching. Neuro: Level of Consciousness is awake, alert, obeys commands, Oriented to person, place, time, situation. Cardiovascular: Denies chest pain, Capillary refill < 3 seconds Patient's skin is warm and dry. Respiratory: Reports cough that is non-productive, persistent Airway is patent Respiratory effort is even, unlabored, Respiratory pattern is regular, symmetrical. GI: Abdomen is round non-distended, Abd is soft and non tender X 4 quads. Reports nausea, vomiting. : No signs and/or symptoms were reported regarding the genitourinary system. EENT: Throat is reddened. Derm: Skin is intact, Skin is dry, Skin is normal, Skin temperature is warm. Musculoskeletal: Circulation, motion, and sensation intact. Range of motion: intact in all extremities. Vital Signs: 13:42 BP 130 / 78; Pulse 96; Resp 18 S; Temp 98.5(TE); Pulse Ox 100% on R/A; Weight 65.77 kg jd3 (R); Height 5 ft. 3 in. (160.02 cm) (R); Pain 0/10; 15:17 BP 120 / 64; Pulse 77; Resp 16 S; Pulse Ox 100% on R/A; jd3 13:42 Body Mass Index 25.69 (65.77 kg, 160.02 cm) jd3 ED Course: 13:28 Patient arrived in ED. mr 13:40 Triage completed. jd3 13:43 Arm band placed on. jd3 15:14 Manuel Borrero, RN is Primary Nurse. jd3 15:16 Patient has correct armband on for positive identification. Bed in low position. Call jd3 light in reach. Side rails up X 1. Adult w/ patient. Pulse ox on. NIBP on. 15:16 No provider procedures requiring assistance completed. Patient did not have IV access jd3 during this emergency room visit. 15:17 Kiet Perez PA is PHCP. jr8 15:17 Vineet Krishna MD is Attending Physician. jr8 Administered Medications: No medications were administered Outcome: 15:18 Condition: stable jd3 15:18 Discharge instructions given to patient, family, Instructed on discharge instructions, follow up and referral plans. medication usage, Demonstrated understanding of instructions, follow-up care, medications. 15:18 Discharge ordered by . madina 15:24 Discharged to home ambulatory, with family. jd3 15:24 Patient left the ED. jd3 Signatures: Yessica Duran mr Kiet Perez PA PA jr8 Davies, Jonathon, RN RN jd3 Corrections: (The following items were deleted from the chart) 15:18 15:17 Pulse 77bpm; Resp 16bpm; Spontaneous; Pulse Ox 100% RA; jd3 jd3
[2021-02-19 15:37] VITALS: TEMP 98.5; O2SAT 100
[2021-02-19 15:39] VITALS: BP 120/64
== END 2021-02-19 15:24 | disposition home or self-care (01) ==
LOC: ER 13:25
DX: J06.9 Acute upper respiratory infection, unspecified (principal); Z20.822 Contact with and (suspected) exposure to COVID-19; F32.9 Major depressive disorder, single episode, unspecified
CPT/HCPCS: 0240U; 99283

== ENCOUNTER 2021-12-17 20:28 | Emergency (ER) | payer OTHER ==
--- OUTSIDE RECORDS SUMMARY | 2021-12-17 20:32 | XMS REPORT | Continuity of Care Document ---
:1995 Author Organization [facility] t Address [address] [place] [address] Care Team Providers Name Role Phone PCP, DOES NOT HAVE A Primary Care Physician Unavailable FARIDA, L Attending Clinician Unavailable Adum Astrid BUTLER Attending Clinician YORDY Attending Clinician Unavailable Ultrasound Attending Clinician Unavailable Astrid IQBAL Admitting Clinician Unavailable Payers Payer Name Policy Type Policy Number Effective Date Expiration Date [facility] [id number] 2020 CHOICE MEDICAID 00:00:00 Problems Condition Condition Condition Status Onset Resolution Last Treating Co mments Source Name Details Category Date Date Treatment Clinician Date Encounter Encounter Disease Active Uni vers for for 8-20 ity of elective elective 00:00: [place] induction induction 00 Medi donn of labor of labor Branch Disease Active Univers (normal (normal 8-20 [place] of spontaneou spont[place] vaginal s vaginal 00 Medi donn delivery) delivery) 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 8-10 ity of 00:00: [place] 00 Medical Branch Anemia of Anemia of Disease Active Uni vers mother in mother in 8-04 [place] of , , [place] antepartum antepartum 00 Me dical Branch Hemorrhoid Hemorrhoid Disease Active U nivers s during s during 6-17 [place] of [place] in third in third 00 Medica l trimester trimester Bran ch 38 weeks 38 weeks Disease Active Unive rs gestation gestation 4-16 ity of of of 00:00: [place] 00 [facility] Branch Supervisio Supervisio Disease Active U nivers n of n of 4-16 ity of high-risk high-risk 00:00: [place] 00 [facility] with with Branch insufficie insufficie nt nt care in care in third third trimester trimester Depression Depression Disease Active U nivers ity of [facility] Anxiety Anxiety Disease Active Univers ity of [facility] Allergies, Adverse Reactions, Alerts Allergy Allergy Status Severity Reaction(s) Onset Inactive Treating Comm ents Source Name Type Date Date Clinician NO KNOWN Drug Active Univers ALLERGIE Class ity of S [facility] Social History Social Habit Start Date Stop Date Quantity Comments Source Exposure to Not sure [facility] SARS-CoV-2 [facility] (event) [place] Alcohol intake 2021-06-24 2021-06-24 Ex-drinker [facility] 00:00:00 00:00:00 (finding) [facility] Tobacco use and 2021-01-01 2021-01-01 Never used Universit y of exposure 00:00:00 00:00:00 [facility] Sex Ass[birth year] At [birth year] Universit y of 00:00:00 00:00:00 [facility] Smoking Status Start Date Stop Date Source Never smoker [facility] Medications Ordered Filled Start Stop Current Ordering Indication Dosage Frequency Signature Comments Components Source Medication Medication Date Date Medication? Clinician (SIG) Name Name ascorbic 2020-09 Yes Take by Unive rs acid 0-07 mouth. ity of (VITAMIN C 11:37: [place] ORAL) 29 Medical Branch ascorbic Yes Take by Unive rs acid 9-09 mouth. ity of (VITAMIN C 19:21: [place] ORAL) 52 Medical Branch 2020- No Take by Univ ers vit 9- 09-09 mouth. ity of calc,iron,f 19:21: 00:00 [place] olic 45 :00 Medical ( Branch VITAMIN ORAL) Yes Take by Unive rs vit 8-22 mouth. ity of calc,iron,f 03:11: [place] olic 26 Medical ( Branch VITAMIN ORAL) Yes [id number] 1{tbl} Take 1 U nivers vitamin 8-21 tablet by ity of w/FA tablet 00:00: mouth [place] 00 daily. Medical Branch docusate 0 Yes [id number] 240mg Take 1 Un sowmya calcium 240 8-21 capsule by it y of mg capsule 00:00: mouth [place] 00 daily as Medical needed for Branch Constipati on. ferrous 0 Yes [id number] 325mg Take 1 Uni vers sulfate 325 8-21 tablet by ity of mg (65 mg 00:00: mouth 2 [place] iron) 00 (two) Medical tablet times Branch daily. ibuprofen 0 Yes [id number] 600mg Take 1 U nivers 600 mg 8-21 tablet by ity of tablet 00:00: mouth [place] 00 every 6 Medical (six) Branch hours as needed (Pain). Take with food or milk. 0 Yes [id number] 1{tbl} Take 1 U nivers vitamin 8-21 tablet by ity of w/FA tablet 00:00: mouth [place] 00 daily. Medical Branch docusate Yes [id number] 240mg Take 1 Un sowmya calcium 240 8-21 capsule by it y of mg capsule 00:00: mouth once [place] 00 daily as Medical needed for Branch Constipati on. ferrous Yes [id number] 325mg Take 1 Uni vers sulfate 325 8-21 tablet by ity of mg (65 mg 00:00: mouth 2 [place] iron) 00 (two) Medical tablet times Branch daily. ibuprofen 0 Yes [id number] 600mg Take 1 U nivers 600 mg 8-21 tablet by ity of tablet 00:00: mouth [place] 00 every 6 Medical (six) Branch hours as needed (Pain). Take with food or milk. 2020-0 Yes [id number] 1{tbl} Take 1 U nivers vitamin 8-21 tablet by ity of w/FA tablet 00:00: mouth [place] 00 daily. Medical Branch docusate 0 Yes [id number] 240mg Take 1 Un sowmya calcium 240 8-21 capsule by it y of mg capsule 00:00: mouth once [place] 00 daily as Medical needed for Branch Constipati on. ferrous 2020-0 Yes [id number] 325mg Take 1 Uni vers sulfate 325 8-21 tablet by ity of mg (65 mg 00:00: mouth 2 [place] iron) 00 (two) Medical tablet times Branch daily. ibuprofen Yes [id number] 600mg Take 1 U nivers 600 mg 8-21 tablet by ity of tablet 00:00: mouth [place] 00 every 6 Medical (six) Branch hours as needed (Pain). Take with food or milk. citalopram Yes [id number] 10mg Take 1 U nivers 10 mg 6-29 tablet by ity of tablet 00:00: mouth [place] 00 daily. Medical Branch citalopram Yes [id number] 10mg Take 1 U nivers 10 mg 6-29 tablet by ity of tablet 00:00: mouth [place] 00 daily. Medical Branch citalopram Yes [id number] 10mg Take 1 U nivers 10 mg 6-29 tablet by ity of tablet 00:00: mouth [place] 00 daily. [facility] Branch famotidine Yes [id number] 20mg Take 1 U nivers 20 mg 6-15 tablet by ity of tablet 00:00: mouth [place] 00 daily. [facility] Branch famotidine 2020- No [id number] 20mg Take 1 Univers 20 mg 6-15 -09 tablet by ity of tablet 00:00: 00:00 mouth [place] 00 :00 daily. [facility] Immunizations Ordered Filled Immunization Date Status Comments [facility] e Immunization Name Name TD 2021-03-02 Completed [facility] 00:00:00 [facility] TDAP 2021-03-02 Completed [facility] 00:00:00 [facility] TDAP 2021-03-02 Completed [facility] 00:00:00 [facility] Influenza Virus 2021-01-01 Completed Universit y of Vaccine Quad .5 mL 00:00:00 [facility] IM 6+ MO Branch Influenza Virus 2021-01-01 Completed Universit y of Vaccine Quad .5 mL 00:00:00 [facility] IM 6+ MO Branch Influenza Virus 2021-01-01 Completed Universit y of Vaccine Quad .5 mL 00:00:00 [facility] 6+ MO Branch Vital Signs Vital Name Observation Time Observation Value Comments Source Systolic blood 2021-06-24 16:36:00 109 mm[Hg] Univer sity of pressure [place] [facility] Diastolic blood 2021-06-24 16:36:00 71 mm[Hg] Unive rsity of pressure [place] [facility] Heart rate 2021-06-24 16:36:00 74 /min Universi ty of [facility] Body temperature 2021-06-24 16:36:00 36.67 [place] Univ ersity of [facility] Respiratory rate 2021-06-24 16:36:00 18 /min Univ ersity of [facility] Branch Body weight 2021-06-24 16:36:00 56.7 kg Universi ty of [place] [facility] BMI 2021-06-24 16:36:00 22.14 kg/m2 Universi ty of [facility] Branch Systolic blood 2021-05-27 19:18:00 112 mm[Hg] Univer sity of pressure [facility] Branch Diastolic blood 2021-05-27 19:18:00 71 mm[Hg] Unive rsity of pressure [place] [facility] [place] Heart rate 2021-05-27 19:18:00 75 /min Universi ty of [place] [facility] Body temperature 2021-05-27 19:18:00 37.11 [place] Univ ersity of [place] [facility] Respiratory rate 2021-05-27 19:18:00 18 /min Univ ersity of [facility] Branch Body height 2021-05-27 19:18:00 160 cm Universi ty of [facility] Body weight 2021-05-27 19:18:00 53.524 kg Universi ty of [facility] BMI 2021-05-27 19:18:00 20.90 kg/m2 Universi ty of [facility] Procedures This patient has no known procedures. Encounters Start End Encounter Admission Attending Care Care Encounter Source Date/Time Date/Time Type Type Clinicians Facility Department ID 2021-07-19 Outpatient P [facility] ÁNGEL [id number] Univers 14:32:15 ity [facility] 2021-07-19 Outpatient P [facility] ÁNGEL [id number] Univers 02:11:53 ity [facility] 2021-07-19 Outpatient P [facility] ÁNGEL [id number] Univers 02:00:17 ity [facility] 2022-06-24 2022-06-24 Outpatient Dian IQBAL [facility] [id number] Univers 10:30:00 10:30:00 [id number] 2022-06-24 Outpatient R ADUM, [facility] [id number] Univers 10:30:00 10:30:00 SEVERO ity [facility] 2021-10-12 2021-10-12 Outpatient R ADUM, [facility] [id number] Univers 09:00:00 09:00:00 SEVERO [id number] ity [facility] 2021-10-12 2021-10-12 Outpatient R ADUM, [facility] [id number] Univers 09:00:00 09:00:00 SEVERO ity [facility] 2021-08-04 2021-08-04 Outpatient R ADUM, [facility] [id number] Univers 13:30:00 13:30:00 SEVERO [id number] ity [facility] 2021-08-04 2021-08-04 Outpatient R ADUM, [facility] [id number] Univers 13:30:00 13:30:00 SEVERO [facility] 2021-07-09 2021-07-09 Outpatient R ADUM, [facility] [id number] Univers 10:30:00 10:30:00 SEVERO [id number] [facility] 2021-07-09 2021-07-09 Outpatient R ADUM, [facility] [id number] Univers 10:30:00 10:30:00 SEVERO [facility] 2021-06-24 2021-06-24 Routine Adum, [facility] [id number] Univers 11:19:06 11:59:52 Severo Cannon [id number] ity of Visit [place] [id number] [place] White[place] [phone] [place] [id number] Branch [facility] 2021-06-24 2021-06-24 Outpatient R ADUM, [facility] [id number] Univers 11:00:00 11:00:00 [facility] [id number] 2021-06-24 2021-06-24 Outpatient R ADUM, [facility] [id number] Univers 11:00:00 11:00:00 SEVERO ity [facility] 2021-06-17 2021-06-17 Outpatient R ADUM, [facility] [id number] Univers 16:00:00 16:00:00 SEVERO [id number] ity [facility] 2021-06-17 2021-06-17 Outpatient R ADUM, [facility] [id number] Univers 16:00:00 16:00:00 SEVERO ity [facility] 2021-05-27 2021-05-27 Routine Adum, [facility] [id number] Univers 14:00:53 14:36:02 Severosarai [place] [id number] ity of [place] [id number] [place] Profess[place] [phone] [address] 2021-05-27 2021-05-27 Outpatient R ADUM, [facility] [id number] Univers 14:00:00 14:00:00 SEVERO [id number] ity [facility] 2021-05-27 2021-05-27 Outpatient R ADUM, [facility] [id number] Univers 14:00:00 14:00:00 SEVERO [facility] 2021-05-12 2021-05-12 Telephone Ad, [facility] [id number] Univers 00:00:00 00:00:00 Severo Astrid [place] [id number] ity of [place] [id number] [id number] [address] 2021-05-05 2021-05-05 Outpatient R ADUM, [facility] [id number] Univers 09:15:00 09:15:00 SEVERO [id number] ity [facility] 2021-05-05 2021-05-05 Outpatient R ADUM, [facility] [id number] Univers 09:15:00 09:15:00 SEVERO ity [facility] 2021-04-27 2021-04-27 Outpatient R ADUM, [facility] [id number] Univers 14:15:00 14:15:00 SEVERO [id number] ity [facility] 2021-04-27 2021-04-27 Outpatient R ADUM, [facility] [id number] Univers 14:15:00 14:15:00 SEVERO ity [facility] 2021-04-23 2021-04-23 Outpatient R [facility] [id number] Univers 10:40:00 10:40:00 [id number] ity [facility] 2021-04-23 2021-04-23 Outpatient R YORDY, [facility] [id number] Univers 10:40:00 10:40:00 ANITRA ity o f [facility] 2021-04-21 2021-04-21 Outpatient R [facility] [id number] Univers 11:30:00 11:30:00 [id number] ity [facility] 2021-04-21 2021-04-21 Outpatient R [facility] [id number] Univers 11:30:00 11:30:00 ity [facility] 2021-04-20 2021-04-20 Outpatient R ADUM, [facility] [id number] Univers 16:00:00 16:00:00 [facility] [id number] [facility] 2021-04-20 2021-04-20 Outpatient R ADUM, [facility] [id number] Univers 16:00:00 16:00:00 SEVERO [facility] 2021-04-13 2021-04-13 Outpatient R ADUM, [facility] [id number] Univers 14:15:00 14:15:00 SEVERO [id number] ity [facility] 2021-04-13 2021-04-13 Outpatient R ADUM, [facility] [id number] Univers 14:15:00 14:15:00 [facility] 2021-03-30 2021-03-30 Outpatient R ADUM, [facility] [id number] Univers 16:15:00 16:15:00 SEVERO [id number] ity [facility] 2021-03-30 2021-03-30 Outpatient R ADUM, [facility] [id number] Univers 16:15:00 16:15:00 [facility] 2021-03-16 2021-03-16 Outpatient R ADUM, [facility] [id number] Univers 14:15:00 14:15:00 SEVERO [id number] ity [facility] 2021-03-16 2021-03-16 Outpatient R ADUM, [facility] [id number] Univers 14:15:00 14:15:00 SEVERO [facility] 2021-03-10 2021-03-10 Outpatient R [facility] [id number] Univers 08:00:00 08:00:00 [id number] ity [facility] 2021-03-10 2021-03-10 Outpatient R [facility] [id number] Univers 08:00:00 08:00:00 ity [facility] 2021-03-09 2021-03-09 Outpatient R ADUM, [facility] [id number] Univers 14:00:00 14:00:00 SEVERO [id number] [facility] 2021-03-09 2021-03-09 Outpatient R ADUM, [facility] [id number] Univers 14:00:00 14:00:00 SEVERO [facility] 2021-03-04 2021-03-04 Outpatient R ADUM, [facility] [id number] Univers 16:15:00 16:15:00 SEVERO [id number] [facility] 2021-03-04 2021-03-04 Outpatient R ADUM, [facility] [id number] Univers 16:15:00 16:15:00 SEVERO [facility] 2021-03-02 2021-03-02 Outpatient R ADUM, [facility] [id number] Univers 10:30:00 10:30:00 SEVERO [id number] [facility] 2021-03-02 2021-03-02 Outpatient R ADUM, [facility] [id number] Univers 10:30:00 10:30:00 SEVERO [facility] 2021-02-19 2021-02-19 Telephone Adum, [facility] [id number] 00:00:00 00:00:00 Severo L [place] [id number] [place] [id number] Professio [id number] [address] 2021-02-16 2021-02-16 Outpatient R [facility] [id number] Univers 08:45:00 08:45:00 [id number] [facility] 2021-02-16 2021-02-16 Outpatient R [facility] [id number] Univers 08:45:00 08:45:00 [facility] 2021-02-12 2021-02-12 Routine Adum, [facility] [id number] 10:34:21 11:08:44 Severo L [place] [id number] Visit [place] [id number] Professio [id number] [address] 2021-02-12 2021-02-12 Outpatient R ADUM, [facility] [id number] Univers 10:30:00 10:30:00 SEVERO [id number] [facility] 2021-02-12 2021-02-12 Outpatient R ADUM, [facility] [id number] Univers 10:30:00 10:30:00 SEVERO [facility] 2021-01-29 2021-01-29 Telephone Adum, [facility] [id number] 00:00:00 00:00:00 Severo L [place] [id number] [place] [id number] Professio [id number] [address] 2021-01-15 2021-01-15 Routine Adum, [facility] [id number] 10:25:05 11:25:51 Severo L [place] [id number] Visit [place] [id number] Professio [id number] [address] 2021-01-15 2021-01-15 Outpatient R ADUM, [facility] [id number] Univers 10:30:00 10:30:00 SEVERO [id number] [facility] 2021-01-15 2021-01-15 Outpatient R ADUM, [facility] [id number] Univers 10:30:00 10:30:00 SEVERO [facility] 2021-01-06 2021-01-06 Clerk Supervisor Ultrasound, [facility] [id number] 09:40:08 10:43:28 Visit [employer] [id number] [facility] [id number] MATERNAL [phone] & CHILD [address] [place] [address] 2021-01-06 2021-01-06 Outpatient R [facility] [id number] Univers 09:45:00 09:45:00 [id number] [facility] 2021-01-06 2021-01-06 Outpatient P [facility] [id number] Univers 09:45:00 09:45:00 [facility] 2021-01-04 2021-01-04 Telephone Adum, [facility] [id number] 00:00:00 00:00:00 Severo [place] [id number] [place] [id number] Professio [id number] nal [address] [place] [address] 2021-01-01 2021-01-01 Outpatient R [facility] [id number] Univers 15:00:00 15:00:00 [id number] [facility] 2021-01-01 2021-01-01 Initial Adum, [facility] [id number] 09:58:30 11:54:41 Severo Cannon [id number] Visit [place] [id number] Professio [id number] [address] 2021-01-01 2021-01-01 Outpatient R [facility] [id number] Univers 09:30:00 09:30:00 SEVERO [facility] Results This patient has no known results.
[2021-12-17] MEDS ORDERED: ONDANSETRON 4 MG (ODT) TAB ONE (22:31)
[2021-12-17] MEDS ORDERED: HYDROCODONE/APAP 7.5/325 MG TAB ONE (23:28)
[2021-12-17] MEDS ORDERED: LIDOCAINE VISCOUS 2% SOLN 15 ML UDC ONE (23:48)
[2021-12-17 23:53] LABS: Urine Bacteria 20-50 /HPF (<20); Urine Mucus HEAVY /HPF (NONE SEEN)
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
[2021-12-18] MEDS ORDERED: SMZ./TMP. 800/160 MG TABLET ONE (00:51)
[2021-12-18 02:59] VITALS: BP 119/60; O2SAT 100
[2021-12-18 03:05] VITALS: TEMP 98.4
== END 2021-12-18 01:05 | disposition home or self-care (01) ==
LOC: ER 20:28
DX: T24.232A Burn of second degree of left lower leg, initial encounter (principal); T24.231A Burn of second degree of right lower leg, initial encounter; T31.0 Burns involving less than 10% of body surface; X15.8XXA Contact with other hot household appliances, initial encounter; N39.0 Urinary tract infection, site not specified; R11.0 Nausea; Z88.6 Allergy status to analgesic agent
CPT/HCPCS: 81015; 87086; 87088; 99283

== ENCOUNTER 2024-02-28 16:06 | Emergency (ER) | payer OTHER ==
--- OUTSIDE RECORDS SUMMARY | 2024-02-28 16:12 | XMS REPORT | Continuity of Care Document ---
Author Name Unknown Address [address] [facility] [address] [place] [address] [facility] Address [address] [facility] [address] [facility] [address] [place] [address] Care Team Providers Care Counter Clerk [employer] Name Role Phone Pcp, Patient Does Not Have A Primary Care Physic sarai Kim Carr MD Attending Clinician [phone] KIM CARR Attending Clinician ROSS Norman Attending Clinician ROSS [place] Attending Clinician Bandar henderson Doctor Unassigned, [place] Attending Clinician U jun Ortiz MD, uSe Attending Clinician [phone], [facility] Lab Attending Clinician Unavailable Ultrasound, Ang-Mfm Attending Clinician UnavailLuis Farmer MD Attending Clinician + LUIS MARIN Attending Clinician Unav ailable Ultrasound, Adc Mfm Attending Clinician Unavailkira Vance MD, Neil Attending Clinician + ROSA GEIGER Attending Clinician Unav ailable ANITRA SCALES Attending Clinician UnavailKIM Lopez Admitting Clinician Unavailable Kim Carr MD Admitting Clinician [phone] Payers Payer Name Policy Type Policy Number Effective Date Expirati on Date Source [employer] MEDICA[employer] [id number] 2020 00:00:00 Problems Condition Name Condition Details Condition Category Status Onset Date Resolution Date Last Treatment Date Treating Clinician Comments Source Anemia affecting Anemia affecting Disease Active 2021-09 00:00: 00 [facility] 39 weeks gestation of 39 weeks gestation of Disease Active 2021-09 00:00: 00 [facility] Encounter for elective induction of labor Encounter for elective induction of labor Disease Active 2021-09 00:00: 00 [facility] Liveborn infant, of starks , born in hospital by vaginal delivery Liveborn infant, of starks , born in hospital by vaginal delivery Disease Active 2021-09 00:00: 00 [facility] Marginal insertion of umbilical cord affecting management of mother in third trimester Marginal insertion of umbilical cord affecting management of mother in third trimester Disease Active 2021-09 0- 00:00: 00 [facility] Abnormal chromosoma l and genetic finding on screening mother Abnormal chromosoma l and genetic finding on screening mother Disease Active 04-26 00:00: 00 [facility] Short interval between pregnancie s complicati ng , antepartum , second trimester Short interval between pregnancie s complicati ng , antepartum , second trimester Disease Active 04-26 00:00: 00 [facility] Low-lying placenta without hemorrhage , second trimester Low-lying placenta without hemorrhage , second trimester Disease Active 04-26 00:00: 00 [facility] Anxiety in in third trimester, antepartum Anxiety in in third trimester, antepartum Disease Active 04-26 00:00: 00 [facility] Depression Depression Disease Active [facility] Anxiety Anxiety Disease Active [facility] Allergies, Adverse Reactions, Alerts Allergy Name Allergy Type Status Severity Reaction(s) Onset Date Inactive Date Treating Clinician Comments Source NO KNOWN ALLERGIE S Drug Class Active [facility] Social History Social Habit Start Date Stop Date Quantity Comments Source ASSERTION 2021-11-17 00:00:00 [facility] Gender identity [facility] Exposure to SARS-CoV-2 (event) 2022-09-17 00:00:00 2022-09-27 13:01:00 Not sure [facility] History of Social function 2022-09-27 00:00:00 2022-09-27 00:00:00 [facility] Alcohol intake 2021-02-12 00:00:00 2021-02-12 00:00:00 Ex-drinker (finding) [facility] Tobacco use and exposure 2021-01-01 00:00:00 2021-01-01 00:00:00 Smokeless tobacco non-user [facility] Sex Assigned At 1995 00:00:00 1995 00:00:00 [facility] Smoking Status Start Date Stop Date Source Never smoked tobacco [facility] Medications Ordered Medication Name Filled Medication Name Start Date Stop Date Current Medication? Ordering Clinician Indication Dosage Frequency Signature (SIG) Comments Components Source copper (PARAGARD T 380A) IUD 1 Intra Uterine Device 09-27 21:00: 00 09-27 20:13 :00 No [id number] 1{IUD} [facility] GABAPENTIN ORAL 09-27 13:30: 13 Yes Take by mouth. [facility] LORazepam 0.5 mg tablet 09-27 13:30: 13 Yes .5mg Take 0.5 mg by mouth. [facility] 25/iron fum/folic/d duncan (-1 ORAL) 09-27 13:27: 11 Yes [id number] Take by mouth. [facility] 25/iron fum/folic/d duncan (-1 ORAL) 2021-09 18:00: 48 Yes [id number] Take by mouth. [facility] ferrous sulfate (IRON ORAL) 2021-09 17:27: 43 08-05 00:00 :00 No Take by mouth. [facility] docusate 100 mg capsule 2021-09 00:00: 00 Yes [id number] 102 200mg Take 2 capsules by mouth once daily as needed for Constipati on. [facility] ferrous sulfate 325 mg (65 mg iron) tablet 2021-09 00:00: 00 Yes [id number] 102 325mg Take 1 tablet by mouth in the morning and 1 tablet in the evening. [facility] ibuprofen 600 mg tablet 2021-09 00:00: 00 Yes [id number] 102 600mg Take 1 tablet by mouth every 6 (six) hours as needed (Pain). Take with food or milk. [facility] HYDROcodone -acetaminop hen (NORCO 5) 5-325 mg tablet 1 tablet 2021-09 19:03: 03 Yes 1{tbl} 1 tablet, Oral, Q6HPRN, Starting on Mon08/04/22 at 1303, Until Discontinu ed, Routine, Pain (scale 7-10) [facility] ibuprofen (IBU) tablet 600 mg 2021-09 19:03: 03 Yes 600mg 600 mg, Oral, Q6HPRN, Starting on Mon08/04/22 at 1303, Until Discontinu ed, Routine, Pain (scale 4-6) [facility] acetaminoph en (TYLENOL) tablet 650 mg 2021-09 19:03: 03 Yes 650mg 650 mg, Oral, Q6HPRN, Starting on Mon08/04/22 at 1303, Until Discontinu ed, Routine, Pain (scale 1-3) [facility] diphenhydrA MINE (BENADRYL) tablet 25 mg 2021-09 19:03: 03 Yes 25mg 25 mg, Oral, Q6HPRN, Starting on Mon08/04/22 at 1303, Until Discontinu ed, Routine, Sleep, Itching [facility] ondansetron (ZOFRAN (PF)) injection 4 mg 2021-09 19:03: 03 Yes 4mg 4 mg, Slow IV Push, Q8HPRN, Starting on Mon08/04/22 at 1303, Until Discontinu ed, Routine, Nausea and Vomiting (N/V) [facility] simethicone (GAS RELIEF (SIMETHICON E)) chewable tablet 160 mg 2021-09 19:03: 03 Yes 160mg 160 mg, Oral, PC+HSPRN, Starting on Mon08/04/22 at 1303, Until Discontinu ed, Routine, Gas [facility] docusate (COLACE) capsule 200 mg 2021-09 19:03: 03 Yes 200mg 200 mg, Oral, QDAILYPRN, Starting on Mon08/04/22 at 1303, Until Discontinu ed, Routine, Constipati on [facility] magnesium hydroxide (MILK OF MAGNESIA) 400 mg/5 mL suspension 30 mL 2021-09 19:03: 03 Yes 30mL 30 mL, Oral, QDAILYPRN, Starting on Elaine 08/04/22 at 1303, Until Discontinu ed, Routine, Constipati on [facility] benzocaine- menthol (DERMOPLAST ) 20-0.5 % topical spray 2021-09 19:03: 02 Yes Topical, PRN, Starting on Mon08/04/22 at 1303, Until Discontinu ed, Routine, Perineum discomfort [facility] fentaNYL-ro pivacaine 2 mcg/mL-0.1 % (PF) in NS 200 mL epidural infusion RTU 2021-09 16:15: 00 08-04 22:51 :37 No Epidural, ONCE INTRA PROCEDURE, Starting on Mon08/04/22 at 1015, Until Mon08/04/22 at 1651, Routine, Intra-op [facility] lidocaine-e pinephrine (XYLOCAINE W/EPINEPHRI NE) 1.5 %-1:200,000 injection 2021-09 16:10: 00 08-04 22:51 :37 No Intraderma l, ONCE INTRA PROCEDURE, Starting on Mon08/04/22 at 1010, Until Elaine 08/04/22 at 1651, Routine, Intra-op [facility] FENTanyl PF (SUBLIMAZE (PF)) injection 100 mcg 2021-09 10:37: 02 08-04 19:04 :20 No 100ug 100 mcg, Slow IV Push, Q1HPRN, Starting on Elaine 08/04/22 at 0437, Until Elaine 08/04/22 at 1304, Routine, Pain (scale 4-6), Pain (scale 7-10) [facility] oxytocin (PITOCIN) 30 units in NS 500 mL IV infusion 2021-09 10:37: 02 08-04 19:04 :20 No 2mU/min at 2-40 mL/hr, IV Infusion, TITRATE, Starting on Elaine 08/04/22 at 0437, Until Elaine 08/04/22 at 1304, LUC [facility] lactated ringers IV infusion 500 mL 2021-09 10:37: 02 08-04 19:04 :20 No 500mL at 999 mL/hr, 500 mL, IV Infusion, PRN - SEE INSTRUCTIO NS, Starting on Mon08/04/22 at 0437, Until Elaine 08/04/22 at 1304, Routine [facility] D5W-LR IV infusion 1,000 mL 2021-09 10:37: 02 08-04 19:04 :20 No 1000mL at 1-125 mL/hr, IV Infusion, TITRATE, Starting on Elaine 08/04/22 at 0437, Until Ealine 08/04/22 at 1304, Routine [facility] 25/iron fum/folic/d duncan (-1 ORAL) 2021-09 05:49: 08 Yes [id number] Take by mouth. [facility] ferrous sulfate (IRON ORAL) 2021-09 16:08: 14 Yes Take by mouth. [facility] citalopram 10 mg tablet 04-26 00:00: 00 Yes [id number] 10mg Take 1 tablet by mouth in the morning. [facility] 25/iron fum/folic/d duncan (-1 ORAL) 5- 15:35: 31 Yes [id number] Take by mouth. [facility] Immunizations Ordered Immunization Name Filled Immunization Name Date Status Comments Source TDAP 2022-05-27 00:00:00 Completed [facility] TDAP 2022-05-27 00:00:00 Completed [facility] TDAP 2022-05-27 00:00:00 Completed [facility] TDAP 2022-05-27 00:00:00 Completed [facility] TDAP 2022-05-27 00:00:00 Completed [facility] TDAP 2022-05-27 00:00:00 Completed [facility] TDAP 2022-05-27 00:00:00 Completed [facility] TDAP 2022-05-27 00:00:00 Completed [facility] TDAP 2022-05-27 00:00:00 Completed [facility] TDAP 2022-05-27 00:00:00 Completed [facility] TDAP 2022-05-27 00:00:00 Completed [facility] TDAP 2022-05-27 00:00:00 Completed [facility] TDAP 2022-05-27 00:00:00 Completed [facility] TDAP 2022-05-27 00:00:00 Completed [facility] TDAP 2022-05-27 00:00:00 Completed [facility] TDAP 2022-05-27 00:00:00 Completed [facility] TDAP 2022-05-27 00:00:00 Completed [facility] TDAP 2022-05-27 00:00:00 Completed [facility] TDAP 2022-05-27 00:00:00 Completed [facility] TDAP 2022-05-27 00:00:00 Completed [facility] TDAP 2022-05-27 00:00:00 Completed [facility] TDAP 2022-05-27 00:00:00 Completed [facility] TDAP 2021-03-02 00:00:00 Completed [facility] TDAP 2021-03-02 00:00:00 Completed [facility] TDAP 2021-03-02 00:00:00 Completed [facility] TDAP 2021-03-02 00:00:00 Completed [facility] TDAP 2021-03-02 00:00:00 Completed [facility] TDAP 2021-03-02 00:00:00 Completed [facility] TDAP 2021-03-02 00:00:00 Completed [facility] TDAP 2021-03-02 00:00:00 Completed [facility] TDAP 2021-03-02 00:00:00 Completed [facility] TDAP 2021-03-02 00:00:00 Completed [facility] TDAP 2021-03-02 00:00:00 Completed [facility] TDAP 2021-03-02 00:00:00 Completed [facility] TDAP 2021-03-02 00:00:00 Completed [facility] TDAP 2021-03-02 00:00:00 Completed [facility] TDAP 2021-03-02 00:00:00 Completed [facility] TDAP 2021-03-02 00:00:00 Completed [facility] TDAP 2021-03-02 00:00:00 Completed [facility] TDAP 2021-03-02 00:00:00 Completed [facility] TDAP 2021-03-02 00:00:00 Completed [facility] TDAP 2021-03-02 00:00:00 Completed [facility] TDAP 2021-03-02 00:00:00 Completed [facility] TDAP 2021-03-02 00:00:00 Completed [facility] TDAP 2021-03-02 00:00:00 Completed [facility] TDAP 2021-03-02 00:00:00 Completed [facility] Influenza Virus Vaccine Quad .5 mL IM 6+ MO 2021-01-01 00:00:00 Completed [facility] Influenza Virus Vaccine Quad .5 mL IM 6+ MO 2021-01-01 00:00:00 Completed [facility] Influenza Virus Vaccine Quad .5 mL IM 6+ MO 2021-01-01 00:00:00 Completed [facility] Influenza Virus Vaccine Quad .5 mL IM 6+ MO 2021-01-01 00:00:00 Completed [facility] Influenza Virus Vaccine Quad .5 mL IM 6+ MO 2021-01-01 00:00:00 Completed [facility] Influenza Virus Vaccine Quad .5 mL IM 6+ MO 2021-01-01 00:00:00 Completed [facility] Influenza Virus Vaccine Quad .5 mL IM 6+ MO 2021-01-01 00:00:00 Completed [facility] Influenza Virus Vaccine Quad .5 mL IM 6+ MO 2021-01-01 00:00:00 Completed [facility] Influenza Virus Vaccine Quad .5 mL IM 6+ MO 2021-01-01 00:00:00 Completed [facility] Influenza Virus Vaccine Quad .5 mL IM 6+ MO 2021-01-01 00:00:00 Completed [facility] Influenza Virus Vaccine Quad .5 mL IM 6+ MO 2021-01-01 00:00:00 Completed [facility] Influenza Virus Vaccine Quad .5 mL IM 6+ MO 2021-01-01 00:00:00 Completed [facility] Influenza Virus Vaccine Quad .5 mL IM 6+ MO 2021-01-01 00:00:00 Completed [facility] Influenza Virus Vaccine Quad .5 mL IM 6+ MO 2021-01-01 00:00:00 Completed [facility] Influenza Virus Vaccine Quad .5 mL IM 6+ MO 2021-01-01 00:00:00 Completed [facility] Influenza Virus Vaccine Quad .5 mL IM 6+ MO 2021-01-01 00:00:00 Completed [facility] Influenza Virus Vaccine Quad .5 mL IM 6+ MO 2021-01-01 00:00:00 Completed [facility] Influenza Virus Vaccine Quad .5 mL IM 6+ MO 2021-01-01 00:00:00 Completed [facility] Influenza Virus Vaccine Quad .5 mL IM 6+ MO 2021-01-01 00:00:00 Completed [facility] Influenza Virus Vaccine Quad .5 mL IM 6+ MO 2021-01-01 00:00:00 Completed [facility] Influenza Virus Vaccine Quad .5 mL IM 6+ MO 2021-01-01 00:00:00 Completed [facility] Influenza Virus Vaccine Quad .5 mL IM 6+ MO 2021-01-01 00:00:00 Completed [facility] Influenza Virus Vaccine Quad .5 mL IM 6+ MO 2021-01-01 00:00:00 Completed [facility] Influenza Virus Vaccine Quad .5 mL IM 6+ MO 2021-01-01 00:00:00 Completed [facility] Influenza Virus Vaccine Quad .5 mL IM 6+ MO (FLUZONE/FLULAVAL/F LUARIX) Unknown Completed [facility] TDAP Unknown Completed [facility] Influenza Virus Vaccine Quad .5 mL IM 6+ MO (FLUZONE/FLULAVAL/F LUARIX) Unknown Completed [facility] Vital Signs Vital Name Observation Time Observation Value Comments S ivett Body height 2022-09-27 19:22:00 160 cm [facility] Body weight 2022-09-27 19:22:00 60.737 kg [facility] BMI 2022-09-27 19:22:00 23.72 kg/m2 [facility] Oxygen saturation in Arterial blood by Pulse oximetry 2022-09-27 19:22:00 97 /min [facility] Systolic blood pressure 2022-09-27 19:22:00 118 mm[Hg] [facility] Diastolic blood pressure 2022-09-27 19:22:00 69 mm[Hg] [facility] Heart rate 2022-09-27 19:22:00 79 /min [facility] Body temperature 2022-09-27 19:22:00 36.89 [place] [facility] Respiratory rate 2022-09-27 19:22:00 16 /min [facility] Systolic blood pressure 2022-08-24 22:29:00 115 mm[Hg] [facility] Diastolic blood pressure 2022-08-24 22:29:00 80 mm[Hg] [facility] Heart rate 2022-08-24 22:29:00 83 /min [facility] Body temperature 2022-08-24 22:29:00 36.94 [place] [facility] Respiratory rate 2022-08-24 22:29:00 18 /min [facility] Body height 2022-08-24 22:29:00 160 cm [facility] Body weight 2022-08-24 22:29:00 61.236 kg [facility] BMI 2022-08-24 22:29:00 23.91 kg/m2 [facility] Systolic blood pressure 2022-08-05 19:13:00 101 mm[Hg] [facility] Diastolic blood pressure 2022-08-05 19:13:00 57 mm[Hg] [facility] Body temperature 2022-08-05 19:13:00 36.56 [place] [facility] Respiratory rate 2022-08-05 19:13:00 18 /min [facility] Oxygen saturation in Arterial blood by Pulse oximetry 2022-08-05 14:30:00 99 /min [facility] Heart rate 2022-08-05 09:50:00 68 /min [facility] Body height 2022-08-04 10:50:00 160 cm [facility] Body weight 2022-08-04 10:50:00 68.493 kg [facility] BMI 2022-08-04 10:50:00 26.75 kg/m2 [facility] Systolic blood pressure 2022-07-27 22:07:00 110 mm[Hg] [facility] Diastolic blood pressure 2022-07-27 22:07:00 64 mm[Hg] [facility] Heart rate 2022-07-27 22:07:00 85 /min [facility] Body temperature 2022-07-27 22:07:00 36.67 [place] [facility] Body height 2022-07-27 22:07:00 160 cm [facility] Body weight 2022-07-27 22:07:00 67.405 kg [facility] BMI 2022-07-27 22:07:00 26.32 kg/m2 [facility] Systolic blood pressure 2022-07-20 20:28:00 100 mm[Hg] [facility] Diastolic blood pressure 2022-07-20 20:28:00 59 mm[Hg] [facility] Heart rate 2022-07-20 20:28:00 86 /min [facility] Body temperature 2022-07-20 20:28:00 36.72 [place] [facility] Body height 2022-07-20 20:28:00 160 cm [facility] Body weight 2022-07-20 20:28:00 66.497 kg [facility] BMI 2022-07-20 20:28:00 25.97 kg/m2 [facility] Systolic blood pressure 2022-07-13 21:45:00 103 mm[Hg] [facility] Diastolic blood pressure 2022-07-13 21:45:00 63 mm[Hg] [facility] Heart rate 2022-07-13 21:45:00 102 /min [facility] Body temperature 2022-07-13 21:45:00 36.72 [place] [facility] Respiratory rate 2022-07-13 21:45:00 17 /min [facility] Body height 2022-07-13 21:45:00 160 cm [facility] Body weight 2022-07-13 21:45:00 65.273 kg [facility] BMI 2022-07-13 21:45:00 25.49 kg/m2 [facility] Systolic blood pressure 2022-06-28 21:17:00 107 mm[Hg] [facility] Diastolic blood pressure 2022-06-28 21:17:00 69 mm[Hg] [facility] Heart rate 2022-06-28 21:17:00 78 /min [facility] Body temperature 2022-06-28 21:17:00 36.67 [place] [facility] Respiratory rate 2022-06-28 21:17:00 17 /min [facility] Body height 2022-06-28 21:17:00 160 cm [facility] Body weight 2022-06-28 21:17:00 64.638 kg [facility] BMI 2022-06-28 21:17:00 25.24 kg/m2 [facility] Systolic blood pressure 2022-06-16 21:16:00 102 mm[Hg] [facility] Diastolic blood pressure 2022-06-16 21:16:00 63 mm[Hg] [facility] Heart rate 2022-06-16 21:16:00 77 /min [facility] Body temperature 2022-06-16 21:16:00 36.72 [place] [facility] Respiratory rate 2022-06-16 21:16:00 18 /min [facility] Body height 2022-06-16 21:16:00 160 cm [facility] Body weight 2022-06-16 21:16:00 64.411 kg [facility] BMI 2022-06-16 21:16:00 25.15 kg/m2 [facility] Systolic blood pressure 2022-05-27 15:58:00 115 mm[Hg] [facility] Diastolic blood pressure 2022-05-27 15:58:00 68 mm[Hg] [facility] Heart rate 2022-05-27 15:58:00 79 /min [facility] Body temperature 2022-05-27 15:58:00 36.78 [place] [facility] Respiratory rate 2022-05-27 15:58:00 18 /min [facility] Body height 2022-05-27 15:58:00 160 cm [facility] Body weight 2022-05-27 15:58:00 64.229 kg [facility] BMI 2022-05-27 15:58:00 25.08 kg/m2 [facility] Systolic blood pressure 2022-04-26 18:21:00 113 mm[Hg] [facility] Diastolic blood pressure 2022-04-26 18:21:00 67 mm[Hg] [facility] Heart rate 2022-04-26 18:21:00 85 /min [facility] Body temperature 2022-04-26 18:21:00 36.94 [place] [facility] Respiratory rate 2022-04-26 18:21:00 18 /min [facility] Body height 2022-04-26 18:21:00 160 cm [facility] Body weight 2022-04-26 18:21:00 61.508 kg [facility] BMI 2022-04-26 18:21:00 24.02 kg/m2 [facility] Procedures Procedure Date / Time Performed Performing Clinician Source DISCLOSURE AND CONSENT MEDICAL & SURGICAL PROCEDURES - FEMALM 2022-09-27 06:01:00 Doctor Unassigned, [place] [facility] POCT TEST 2022-09-27 00:00:00 Adum, Kim Resendiz [facility] CBC WITH DIFF 2022-08-05 09:57:00 Adum, Kim Momin [facility] CENTRAL NEURAXIAL BLOCK 2022-08-04 16:43:44 Arash Ortiz [facility] CBC WITH DIFF 2022-08-04 11:31:00 Adum, Kim Momin [facility] HEPATITIS B SURFACE ANTIGEN 2022-08-04 11:31:00 Adum, Kim Resendiz [facility] ADC OR MANINDER ONLY - RPR 2022-08-04 11:31:00 Adum, Kim Resendiz [facility] HIV 1/2 AG-AB WITH REFLEX 2022-08-04 11:31:00 Adum, Kim Resendiz [facility] HB ABO GROUPING 2022-08-04 11:22:00 Adum, Kim Sanchez [facility] NOTICE OF PRIVACY PRACTICES 2022-08-04 10:32:02 Doctor Unassigned, [place] [facility] CONSENT/REFUSAL FOR DIAGNOSIS AND TREATMENT 2022-08-04 10:29:47 Doctor Unassigned, [place] [facility] ASSIGNMENT OF BENEFITS 2022-08-04 10:29:18 Docto r Unassigned, [place] [facility] CONSENT/REFUSAL FOR DIAGNOSIS AND TREATMENT 2022-07-29 21:06:23 Doctor Unassigned, [place] [facility] ASSIGNMENT OF BENEFITS 2022-07-29 21:06:05 Docto r Unassigned, [place] [facility] POCT URINALYSIS W/O SPECIFIC GRAVITY 2022-07-27 00:00:00 Adum, Kim Resendiz [facility] POCT URINALYSIS W/O SPECIFIC GRAVITY 2022-07-20 00:00:00 Adum, Kim Resendiz [facility] >14 WEEKS US LIMITED 2022-07-13 22:11:13 Adum, Kim Resendiz [facility] DSU PRE-OP 2022-07-13 05:01:00 Doctor Unass igned, [place] [facility] POCT URINALYSIS W/O SPECIFIC GRAVITY 2022-07-13 00:00:00 Adum, Kim Resendiz [facility] POCT URINALYSIS W/O SPECIFIC GRAVITY 2022-06-28 00:00:00 Adum, Kim Resendiz [facility] POCT URINALYSIS W/O SPECIFIC GRAVITY 2022-06-16 21:20:00 Adum, Kim Resendiz [facility] GLUCOSE 1 HOUR POST PRANDIAL 2022-05-27 18:44:00 Adum, Kim Resendiz [facility] CBC WITH DIFF 2022-05-27 18:44:00 [facility], [facility]2 [facility]-AB WITH REFLEX 2022-05-27 18:44:00 Adum, Kim Resendiz [facility] TDAP VACCINE, >11 YRS, IM 2022-05-27 16:00:15 Adum, Kim Resendiz [facility] STERILIZATION CONSENT FORM 2022-05-27 05:01:00 Doctor Unassigned, [place] [facility] POCT URINALYSIS W/O SPECIFIC GRAVITY 2022-05-27 00:00:00 Adum, Kim Resendiz [facility] URINE DRUG (IMMUNOASSAY) - COMPREHENSIVE DRUG SCREEN 2022-04-26 18:47:00 Adum, Kim Resendiz [facility] POCT URINALYSIS W/O SPECIFIC GRAVITY 2022-04-26 00:00:00 Christy Bullock [facility] Encounters Start Date/Time End Date/Time Encounter Type Admission Type Attending Clinicians Care Facility Care Department Encounter ID Source 2021-07-19 14:32:15 Outpatient P [facility] [id number] [facility] 2021-07-19 02:11:53 Outpatient P [facility] [id number] [facility] 2021-07-19 02:00:17 Outpatient P [facility] [id number] [facility] 2023-05-11 00:00:00 2023-05-11 00:00:00 Refill Adum, Kim Resendiz [facility] 1.2.840.114 350.1.13.10 4.2.7.2.686 [id number] 134 [id number] [facility] 2023-04-13 00:00:00 2023-04-13 00:00:00 Refill Adum, Kim Resendiz [facility] 1.2.840.114 350.1.13.10 4.2.7.2.686 [id number] 134 [id number] [facility] 2022-11-14 00:00:00 2022-11-14 00:00:00 Refill Adum, Kim Resendiz [facility] 1.2.840.114 350.1.13.10 4.2.7.2.686 [id number] 134 [id number] [facility] 2022-10-11 00:00:00 2022-10-11 00:00:00 Refill Adum, Kim Resendiz [facility] 1.2.840.114 350.1.13.10 4.2.7.2.686 [id number] 134 [id number] [facility] 2022-09-27 13:00:00 2022-09-27 14:14:51 Outpatient R ROSS DANI[facility]S [facility] [id number] [facility] 2022-09-27 13:00:00 2022-09-27 14:14:51 Office Visit Kim Carr Cheryal [facility] 1.2.840.114 350.1.13.10 4.2.7.2.686 [id number] 134 [id number] [facility] 2022-09-27 00:00:00 2022-09-27 00:00:00 Orders Only Doctor Unassigned, [place] [facility] 1.2840.114 350.1.13.10 4.2.7.2.686 [id number] [facility] 2022-09-21 13:30:00 2022-09-21 13:30:00 Outpatient R [facility] [id number] [facility] 2022-09-14 00:00:00 2022-09-14 00:00:00 Refill Kim Carr [facility] 1.2840.114 350.1.13.10 4.2.7.2.686 [id number] 134 [id number] [facility] 2022-08-24 16:15:00 2022-08-24 16:47:44 Outpatient R ADLAUREN [facility] [id number] [facility] 2022-08-24 16:15:00 2022-08-24 16:47:44 Routine Visit Kim Carr [facility] 1.0.114 350.1.13.10 4.2.7.2.686 [id number] 134 [id number] [facility] 2022-08-04 04:28:00 2022-08-05 18:00:00 Inpatient P KIM CARR [facility] [id number] [facility] 2022-08-04 04:28:00 2022-08-05 18:00:00 Hospital Encounter AdKim aguilar [facility] 1.2840.114 350.1.13.10 4.2.7.2.686 [id number] [facility] 2022-08-04 10:02:00 2022-08-04 16:51:00 Anesthesia Event Sue Ortiz [facility] 1.2840.114 350.1.13.10 4.2.7.2.686 [id number] [facility] 2022-07-27 15:45:00 2022-07-27 16:41:10 Outpatient R ADUM [facility] [id number] [facility] 2022-07-27 15:45:00 2022-07-27 16:41:10 Routine Visit Adum Kim [facility] 1.20.114 350.1.13.10 4.2.7.2.686 [id number] 134 [id number] [facility] 2022-07-20 15:00:00 2022-07-20 15:44:56 Outpatient R ADLAUREN [facility] [id number] [facility] 2022-07-20 15:00:00 2022-07-20 15:44:56 Routine Visit Ad [facility] 1.20.114 350.1.13.10 4.2.7.2.686 [id number] 134 [id number] [facility] 2022-07-19 16:00:00 2022-07-19 16:15:00 Computer Customer Support Specialist Visit 2, Adc Lab Adlauren [facility] 1.2.114 350.1.13.10 4.2.7.2.686 [id number] [facility] 2022-07-19 16:00:00 2022-07-19 16:00:00 Outpatient R ADUM [facility] [id number] [facility] 2022-07-13 15:45:00 2022-07-13 17:04:09 Outpatient R ADLAUREN [facility] [id number] [facility] 2022-07-13 15:45:00 2022-07-13 17:04:09 Routine Visit Ad [facility] 1.20.114 350.1.13.10 4.2.7.2.686 [id number] 134 [id number] [facility] 2022-07-13 00:00:00 2022-07-13 00:00:00 Orders Only Doctor Unassigned, [place] [facility] 1.840.114 350.1.13.10 4.2.7.2.686 [id number] [facility] 2022-06-28 15:45:00 2022-06-28 16:46:19 Outpatient R [facility] [id number] [facility] 2022-06-28 15:45:00 2022-06-28 16:46:19 Routine Visit Kim Carr [facility] 1.840.114 350.1.13.10 4.2.7.2.686 [id number] 134 [id number] [facility] 2022-06-24 15:00:00 2022-06-24 15:45:00 Computer Customer Support Specialist Visit Ultrasound, Luis Whalen [facility] DOOR PATCHER [facility] 1.840.114 350.1.13.10 4.2.7.2.686 [id number] [facility] 2022-06-24 15:00:00 2022-06-24 15:00:00 Outpatient P LUIS [facility] [id number] [facility] 2022-06-24 10:30:00 2022-06-24 10:30:00 Outpatient R ADLAUREN [facility] [id number] [facility] 2022-06-16 16:00:00 2022-06-16 16:37:36 Outpatient R ADLAUREN [facility] [id number] [facility] 2022-06-16 16:00:00 2022-06-16 16:37:36 Routine Visit AdKim aguilar [facility] 1.840.114 350.1.13.10 4.2.7.2.686 [id number] 134 [id number] [facility] 2022-06-09 13:45:00 2022-06-09 13:45:00 Outpatient R ADUM, [facility] [id number] [facility] 2022-05-27 10:45:00 2022-05-27 11:43:09 Outpatient R ADUM, [facility] [id number] [facility] 2022-05-27 10:45:00 2022-05-27 11:43:09 Routine Visit Adum, [facility] 1.2.840.114 350.1.13.10 4.2.7.2.686 [id number] 134 [id number] [facility] 2022-05-27 09:30:00 2022-05-27 09:45:00 Computer Customer Support Specialist Visit 2, Adc Lab Adum, [facility] 1.2.840.114 350.1.13.10 4.2.7.2.686 [id number] [facility] 2022-05-27 00:00:00 2022-05-27 00:00:00 Orders Only Doctor Unassigned, [place] [facility] 1.2840.114 350.1.13.10 4.2.7.2.686 [id number] [facility] 2022-04-26 13:15:00 2022-04-26 14:18:21 Outpatient R ADUM, [facility] [id number] [facility] 2022-04-26 13:15:00 2022-04-26 14:18:21 Routine Visit Adum, [facility] 1.2.840.114 350.1.13.10 4.2.7.2.686 [id number] 134 [id number] [facility] 2022-04-20 00:00:00 2022-04-20 00:00:00 Telephone Adum, Kim Resendiz [facility] 1.2.840.114 350.1.13.10 4.2.7.2.686 [id number] 134 [id number] [facility] 2022-04-20 00:00:00 2022-04-20 00:00:00 Patient Secure Msg Doctor Unassigned, [place] [facility] 1.2.840.114 350.1.13.10 4.2.7.2.686 [id number] 134 [id number] [facility] 2022-04-09 00:00:00 2022-04-09 00:00:00 Telephone Adum, Kim Astrid [facility] 1.2.840.114 350.1.13.10 4.2.7.2.686 [id number] 134 [id number] [facility] 2022-03-29 11:00:00 2022-03-29 12:00:00 Computer Customer Support Specialist Visit Ultrasound, Adc Mfm Rosa Barrios [facility] 1.2.840.114 350.1.13.10 4.2.7.2.686 [id number] 134 [id number] [facility] 2022-03-29 11:00:00 2022-03-29 11:00:00 [facility] [id number] [facility] 2022-03-29 11:00:00 2022-03-29 11:00:00 Outpatient P ROSA BARRIOS [facility] [id number] [facility] 2022-03-24 16:00:00 2022-03-24 16:00:00 Outpatient R KIM CARR [facility] [id number] [facility] 2022-03-24 00:00:00 2022-03-24 00:00:00 Telephone AdKim agu[facility] 1.2.840.114 350.1.13.10 4.2.7.2.686 [id number] 134 [id number] [facility] 2022-03-18 00:00:00 2022-03-18 00:00:00 Patient Secure Msg Adum, Kim Resendiz [facility] 1.2.840.114 350.1.13.10 4.2.7.2.686 [id number] 134 [id number] [facility] 2022-03-17 00:00:00 2022-03-17 00:00:00 Telephone Adum, Kim Resendiz [facility] 1.2.840.114 350.1.13.10 4.2.7.2.686 [id number] 134 [id number] [facility] 2022-03-15 11:00:00 2022-03-15 11:00:00 Outpatient R ADLAUREN [facility] [id number] [facility] 2022-03-10 00:00:00 2022-03-10 00:00:00 Telephone Adum, Kim Resendiz [facility] 1.2.840.114 350.1.13.10 4.2.7.2.686 [id number] 134 [id number] [facility] 2022-03-01 13:15:00 2022-03-01 13:30:00 Computer Customer Support Specialist Visit 2, Adc Lab Adum, Kim Resendiz [facility] 1.2.840.114 350.1.13.10 4.2.7.2.686 [id number] [facility] 2022-03-01 13:15:00 2022-03-01 13:15:00 Outpatient R ADLAUREN [facility] [id number] [facility] 2022-02-23 00:00:00 2022-02-23 00:00:00 Orders Only Doctor Unassigned, [place] [facility] 1.2.840.114 350.1.13.10 4.2.7.2.686 [id number] [facility] 2022-02-10 14:30:00 2022-02-10 16:34:18 Outpatient R ADKIM [facility] [id number] [facility] 2022-02-10 14:30:00 2022-02-10 16:34:18 Initial Visit iKm Carr [facility] 1.2.840.114 350.1.13.10 4.2.7.2.686 [id number] 134 [id number] [facility] 2022-02-10 14:30:00 2022-02-10 16:34:18 Outpatient R ADLAUREN [facility] [id number] [facility] 2022-02-10 00:00:00 2022-02-10 00:00:00 Telephone AdKim aguilar [facility] 1.2.840.114 350.1.13.10 4.2.7.2.686 [id number] 134 [id number] [facility] 2022-02-10 00:00:00 2022-02-10 00:00:00 Orders Only Doctor Unassigned, [place] [facility] 1.2.840.114 350.1.13.10 4.2.7.2.686 [id number] [facility] 2022-02-09 14:00:00 2022-02-09 14:00:00 Outpatient R ADLAUREN [facility] [id number] [facility] 2021-10-12 09:00:00 2021-10-12 09:00:00 Outpatient R ADLAUREN [facility] [id number] [facility] 2021-08-04 13:30:00 2021-08-04 13:30:00 Outpatient R ADUM, [facility] [id number] [facility] 2021-07-09 10:30:00 2021-07-09 10:30:00 Outpatient R ADUM, [facility] [id number] [facility] 2021-06-24 11:19:06 2021-06-24 11:59:52 Routine Visit Adum, Kim Resendiz [facility] 1.2.840.114 350.1.13.10 4.2.7.2.686 [id number] 134 [id number] [facility] 2021-06-24 11:00:00 2021-06-24 11:00:00 Outpatient R ADUM, [facility] [id number] [facility] 2021-06-17 16:00:00 2021-06-17 16:00:00 Outpatient R ADUM, [facility] [id number] [facility] 2021-05-27 14:00:53 2021-05-27 14:36:02 Routine Visit Adum, Kim Resendiz [facility] 1.2.840.114 350.1.13.10 4.2.7.2.686 [id number] 134 [id number] [facility] 2021-05-27 14:00:00 2021-05-27 14:00:00 Outpatient R ADUM, [facility] [id number] [facility] 2021-05-12 00:00:00 2021-05-12 00:00:00 Telephone Adum, Kim Resendiz [facility] 1.2.840.114 350.1.13.10 4.2.7.2.686 [id number] 134 [id number] [facility] 2021-05-05 09:15:00 2021-05-05 09:15:00 Outpatient R ADUM, [facility] [id number] [facility] 2021-04-27 14:15:00 2021-04-27 14:15:00 Outpatient R KIM CARR [facility] [id number] [facility] 2021-04-23 10:40:00 2021-04-23 10:40:00 Outpatient R ANITRA SCALES [facility] [id number] [facility] 2021-04-21 11:30:00 2021-04-21 11:30:00 Outpatient R [facility] [id number] [facility] 2021-04-20 16:00:00 2021-04-20 16:00:00 Outpatient R KIM CARR [facility] [id number] [facility] 2021-04-13 14:15:00 2021-04-13 14:15:00 Outpatient R FARIDA [facility] [id number] [facility] 2021-03-30 16:15:00 2021-03-30 16:15:00 Outpatient R FARIDA [facility] [id number] [facility] 2021-03-16 14:15:00 2021-03-16 14:15:00 Outpatient R KIM CARR [facility] [id number] [facility] 2021-03-10 08:00:00 2021-03-10 08:00:00 Outpatient R [facility] [id number] [facility] 2021-03-09 14:00:00 2021-03-09 14:00:00 Outpatient R KIM CARR [facility] [id number] [facility] 2021-03-04 16:15:00 2021-03-04 16:15:00 Outpatient R KIM CARR [facility] [id number] [facility] 2021-03-02 10:30:00 2021-03-02 10:30:00 Outpatient R ADLAUREN [facility] [id number] [facility] 2021-02-19 00:00:00 2021-02-19 00:00:00 Patient Secure Msg Doctor Unassigned, [place] [facility] 1.2.840.114 350.1.13.10 4.2.7.2.686 [id number] 134 [id number] [facility] 2021-02-19 00:00:00 2021-02-19 00:00:00 Telephone Adum, Kim Resendiz [facility] 1.2.840.114 350.1.13.10 4.2.7.2.686 [id number] 134 [id number] 2021-02-16 08:45:00 2021-02-16 08:45:00 Outpatient R [facility] [id number] [facility] 2021-02-12 10:34:21 2021-02-12 11:08:44 Routine Visit Adum, Kim Resendiz [facility] Efraín.2.840.114 350.1.13.10 4.2.7.2.686 [id number] 134 [id number] 2021-02-12 10:30:00 2021-02-12 10:30:00 Outpatient R ADLAUREN, [facility] [id number] [facility] 2021-01-29 00:00:00 2021-01-29 00:00:00 Telephone Adum, Kim Resendiz [facility] Efraín.2.840.114 350.1.13.10 4.2.7.2.686 [id number] 134 [id number] 2021-01-15 10:25:05 2021-01-15 11:25:51 Routine Visit Adum, Kim Resendiz [facility] 1.2.840.114 350.1.13.10 4.2.7.2.686 [id number] 134 [id number] 2021-01-15 10:30:00 2021-01-15 10:30:00 Outpatient R ADUM [facility] [id number] [facility] 2021-01-06 09:40:08 2021-01-06 10:43:28 Computer Customer Support Specialist Visit Ultrasound, [facility] DOOR [facility] 1.2.840.114 350.1.13.10 4.2.7.2.686 [id number] 2021-01-06 09:45:00 2021-01-06 09:45:00 Outpatient P [facility] [id number] [facility] 2021-01-04 00:00:00 2021-01-04 00:00:00 Telephone Adum, Kim Resendiz [facility] 1.2.840.114 350.1.13.10 4.2.7.2.686 [id number] 134 [id number] 2021-01-01 09:58:30 2021-01-01 11:54:41 Initial Visit Adum, Kim [facility] 1.2.840.114 350.1.13.10 4.2.7.2.686 [id number] 134 [id number] 2021-01-01 09:30:00 2021-01-01 09:30:00 Outpatient R ADUM, [facility] [id number] [facility] Results Test Description Test Time Test Comments Results Result Co mments Source [facility] [id number] 19:42:00* Test Item Value Reference Range Interpretation Comme nts POCT PREG (test code = 1605) Negative On board controls acceptable with C Line (test code = 3574) Yes POCT PREG LOT # (test code = 3575) POCT PREG TEST DATE ( test code = 3576) [facility] and Screen - ONCE [id number] 12:37:14 * Test Item Value Reference Range Interpretation Comme nts ABO & RH (test code = 20) O Positive Performed at [facility] B Laboratory Services - [facility] Blood [address] [place] [id number] Free: [phone] No. [id number] IAT (test code = 1185) Negative Performed at [facility] Laboratory Services - [facility] Blood [address] [place] [place] [address]Talv Free: [phone] No. [id number] [facility] URINALYSIS W/O SPECIFIC [id number] 22:05:00* Test Item Value Reference Range Interpretation Comme nts POCT PH U (test code = 3254) n/a 5-8 POCT U LEUK EST (test code = 3263) n/a Negative - N egative POCT U NIT (test code = 3262) N/A Negative - Negati ve POCT U PROT (test code = 3259) trace Negative - Negat susan POCT U GLU (test code = 3256) normal Negative - Negati ve POCT U KETONE (test code = 3258) n/a Negative - Neg ative POCT U BLD (test code = 3257) n/a Negative - Negati ve [facility] URINALYSIS W/O SPECIFIC [id number] 20:27:00* Test Item Value Reference Range Interpretation Comme nts POCT PH U (test code = 3254) n/a 5-8 POCT U LEUK EST (test code = 3263) n/a Negative - Negative POCT U NIT (test code = 3262) n/a Negative - Negati ve POCT U PROT (test code = 3259) Negative Negative - Negat susan POCT U GLU (test code = 3256) Normal Negative - Negati ve POCT U KETONE (test code = 3258) n/a Negative - Neg ative POCT U BLD (test code = 3257) n/a Negative - Negati ve [facility] URINALYSIS W/O SPECIFIC [id number] 21:44:00* Test Item Value Reference Range Interpretation Comme nts POCT PH U (test code = 3254) n/a 5-8 POCT U LEUK EST (test code = 3263) n/a Negative - Negative POCT U NIT (test code = 3262) n/a Negative - Negati ve POCT U PROT (test code = 3259) trace Negative - Negat susan POCT U GLU (test code = 3256) negative Negative - Negati ve POCT U KETONE (test code = 3258) n/a Negative - Neg ative POCT U BLD (test code = 3257) n/a Negative - Negati ve [facility] W/O SPECIFIC [id number] 21:28:00* Test Item Value Reference Range Interpretation Comme nts POCT PH U (test code = 3254) n/a 5-8 POCT U LEUK EST (test code = 3263) n/a Negative - Negative POCT U NIT (test code = 3262) n/a Negative - Negati ve POCT U PROT (test code = 3259) Negative - Negat susan POCT U GLU (test code = 3256) negative Negative - Negati ve POCT U KETONE (test code = 3258) n/a Negative - Neg ative POCT U BLD (test code = 3257) n/a Negative - Negati ve [facility] W/O SPECIFIC [id number] 21:20:00* Test Item Value Reference Range Interpretation Comme nts POCT PH U (test code = 3254) n/a 5-8 POCT U LEUK EST (test code = 3263) n/a Negative - Negative POCT U NIT (test code = 3262) n/a Negative - Negati ve POCT U PROT (test code = 3259) negative Negative - Negat susan POCT U GLU (test code = 3256) negative Negative - Negati ve POCT U KETONE (test code = 3258) n/a Negative - Neg ative POCT U BLD (test code = 3257) n/a Negative - Negati ve [facility]/2 AG-AB WITH [id number] 21:12:31* Test Item Value Reference Range Interpretation Comme nts HIV Semi-quantitative (test code = 84944-3) Negative Negative JERAMY (test code = JERAMY) Non-reactive for HIV-1 antigen and HIV-1/HIV-2 antibodies. ?No laboratory evidence of HIV infection. ?Repeat in 2-4 weeks if acute HIV infection is suspected. [facility] H[facility] POST [id number] 20:30:20* Test Item Value Reference Range Interpretation Comme nts GLUC 1 HR (test code = 4362254621) 133 mg/dL 120-170 Lab Interpretation (test cod e = 88903-5) Normal [facility] WITH [id number] 18:54:03* Test Item Value Reference Range Interpretation Comme nts WBC (test code = 6690-2) See_Comment [Automated messa ge] The system which generated this result transmitted reference range: 4.30 - 11.10 10*3/?L. The reference range was not used to interpret this result as normal/abnormal. RBC (test code = 789-8) See_Comment L [Automated messa ge] The system which generated this result transmitted reference range: 3.93 - 5.25 10*6/?L. The reference range was not used to interpret this result as normal/abnormal. HGB (test code = 718-7) 10.1 g/dL 11.6-15 L HCT (test code = 4544-3) 31.2 % 35.7-45.2 L MCV (test code = 787-2) 92.6 fL 80.6-95.5 MCH (test code = 785-6) 30.0 pg 25.9-32.8 MCHC (test code = 786-4) 32.4 g/dL 31.6-35.1 RDW-SD (test code = 86009-3) 44.7 fL 39-49.9 RDW-CV (test code = 788-0) 13.2 % 12-15.5 PLT (test code = 777-3) See_Comment [Automated messa ge] The system which generated this result transmitted reference range: 166 - 358 10*3/?L. The reference range was not used to interpret this result as normal/abnormal. MPV (test code = 92978-7) 10.5 fL 9.5-12.9 NRBC/100 WBC (test code = 1615760050) See_Comment [Automated me ssage] The system which generated this result transmitted reference range: 0.0 - 10.0 /100 WBCs. The reference range was not used to interpret this result as normal/abnormal. NRBC x10^3 (test code = 4350348806) See_Comment [Automated messa ge] The system which generated this result transmitted reference range: 10*3/?L. The reference range was not used to interpret this result as normal/abnormal. GRAN MAT (NEUT) % (test code = 770-8) 74.5 % IMM GRAN % (test code = 8779255995) 0.80 % LYMPH % (test code = 736-9) 18.0 % MONO % (test code = 5905-5) 5.7 % EOS % (test code = 713-8) 0.4 % BASO % (test code = 706-2) 0.6 % GRAN MAT x10^3(ANC) (test code = 1003844353) 6.72 10*3/uL 1.88-7.09 IMM GRAN x10^3 (test code = 3894264983) 0.07 10*3/uL 0-0.06 H LYMPH x10^3 (test code = 731-0) 1.62 10*3/uL 1.32-3.29 MONO x10^3 (test code = 742-7) 0.51 10*3/uL 0.33-0.92 EOS x10^3 (test code = 711-2) 0.04 10*3/uL 0.03-0.39 BASO x10^3 (test code = 704-7) 0.05 10*3/uL 0.01-0.07 Lab Interpretation (test code = 95614-1) Abnormal [facility] URINALYSIS W/O SPECIFIC [id number] 15:55:00* Test Item Value Reference Range Interpretation Comme nts POCT PH U (test code = 3254) n/a 5-8 POCT U LEUK EST (test code = 3263) n/a Negative - Negative POCT U NIT (test code = 3262) n/a Negative - Negati ve POCT U PROT (test code = 3259) negative Negative - Negat susan POCT U GLU (test code = 3256) negative Negative - Negati ve POCT U KETONE (test code = 3258) n/a Negative - Neg ative POCT U BLD (test code = 3257) n/a Negative - Negati ve [facility] URINALYSIS W/O SPECIFIC [id number] 18:20:00* Test Item Value Reference Range Interpretation Comme nts POCT PH U (test code = 3254) n/a 5-8 POCT U LEUK EST (test code = 3263) n/a Negative - Negative POCT U NIT (test code = 3262) n/a Negative - Negati ve POCT U PROT (test code = 3259) negative Negative - Negat susan POCT U GLU (test code = 3256) negative Negative - Negati ve POCT U KETONE (test code = 3258) n/a Negative - Neg ative POCT U BLD (test code = 3257) n/a Negative - Negati ve [facility] Notes Date/Time Note Provider Source 2023-05-17 08:45:21 [id number]:45:21F ormatting of this note might be different from the original.Attempted to contact patient regarding Rx request. No answer, VM left. Camilo Sims RN 05/17/2023 8:45 AM [id number] encounter [id number]:45:39Telepho ne encounter [id number] .[id number] e for patient [id number] y Collins RN[address] SfmcWlmvqdkaaAwquextscGIJW715164 [id number] 8-30T08:45:[id number] .3.15|[id number]. [id number] Camilo Sims RN [facility] 2023-05-16 08:11:02 [id number]:11:02F ormatting of this note might be different from the original.Attempted to contact patient regarding refill request. Original Rx was 04/2022. 4 months worth. No answer, VM left. Camilo Sims RN 05/16/2023 8:13 AM [id number] encounter [id number]:13:35Telepho ne encounter [id number] .[id number] e for patient [id number] Nr[id number] 08:13:351.2.840.578991.1.72 .3.15|1.2.840.121686.1.13.104.2. [id number] [facility]"
[2024-02-28] MEDS ORDERED: MORPHINE 2 MG/ML SYR ONE ×2 (16:34→19:34)
[2024-02-28] MEDS ORDERED: PANTOPRAZOLE 40 MG INJ ONE (16:34)
[2024-02-28] MEDS ORDERED: ONDANSETRON 4 MG/2 ML VIAL ONE ×2 (16:34→18:50)
[2024-02-28] MEDS ORDERED: NA CHLORIDE 0.9% 1,000 ML ONE (16:35)
[2024-02-28 17:04] LABS: Specific Gravity > 1.030 (1.005-1.030)
[2024-02-28 17:12] LABS: Specific Gravity > 1.030 (1.005-1.030); Urine Bacteria None Seen /HPF (<20); Urine Bilirubin 1+ (Negative); Urine Blood 2+ (Negative); Urine Clarity Extremely Turbid (Clear); Urine Color Yellow (Yellow); Urine Culture Reflex Order REFLEXED; Urine Glucose NEGATIVE (Negative); Urine Ketones 4+ (Over) (Negative); Urine Microscopic Reflex YN ORDER UMIC; Urine Mucus 4+ /HPF (None Seen); Urine Nitrite NEGATIVE (Negative); Urine Protein 3+ (Negative); Urine RBC 21-50 /HPF (None Seen); Urine Urobilinogen 1+ (Normal)
[2024-02-28 17:15] LABS: Absolute Basophils 0.1 K/uL (0-0.5); Absolute Lymphocytes (CBC) 0.8 K/uL (0.7-4.9); Absolute Monocytes 0.3 K/uL (0.1-1.3); Absolute Neutrophil 8.5 K/uL (1.8-8.0); Basophils % 0.7 % (0-1.3); Eosinophils % 0.1 % (0-4.4); Hematocrit 42.4 % (36.0-45.0); Hemoglobin 14.2 g/dL (12.0-15.0); Lymphocytes % 8.7 % (15.3-44.8); MCH 31.5 pg (27.0-35.0); MCHC 33.6 g/dL (32.0-36.0); MCV 93.6 fL (80-100); Monocytes % 2.6 % (3.3-12.3); Neutrophils % 87.9 % (41.7-73.7); Platelets 299 thou/uL (152-406); RBC Red Blood Cell Count 4.52 M/uL (3.86-4.86); Red Cell Distribution Width 14.4 % (12.1-15.2)
[2024-02-28 17:19] LABS: Albumin 4.3 g/dL (3.4-5.0); Anion Gap 13.1 mEq/L (5.0-15.0); Bilirubin Total 0.5 mg/dL (0.2-1.0); Globulin 4.1 g/dL (2.3-3.5); Potassium 3.1 mEq/L (3.5-5.1); Protein, Total 8.4 g/dL (6.4-8.2)
[2024-02-28 17:38] LABS: Blood Morphology Comment NOT SEEN (NOT SEEN); Platelet Estimate ADEQ; White Blood Cell Scan OK (OK)
--- NOTE | 2024-02-28 18:27 | RAD REPORT ---
EXAM DESCRIPTION: CT - Abdomen Pelvis W Contrast - 02/28/2024 5:38 pm CLINICAL HISTORY: ABD PAIN COMPARISON: Abdomen Pelvis W Contrast dated 07/28/2020; CT ABD PELVIS W CONTRAST dated 08/05/2014 TECHNIQUE: Thin cut axial CT imaging of the abdomen and pelvis was performed following intravenous a dministration of 100 mL Isovue 300. Multiplanar reformats were generated and reviewed. All CT scans are performed using dose optimization technique as appropriate and may include automated exposure control or mA/KV adjustment according to patient size. FINDINGS: No suspicious findings in the lung bases. The liver, spleen, adrenal glands, and pancreas show no suspicious findings. Gallbladder and biliary tree are also without suspicious finding. Symmetric renal function is seen with no hydronephrosis or suspicious renal mass. No dilated bowel loops or bowel wall thickening. Appendix is unremarkable. No free air, free fluid or inflammatory stranding. No hernia, mass or bulky lymphadenopathy. IUD in place. The urinary bladder is without significant finding. No suspicious bony findings. IMPRESSION: No acute intra-abdominal process.
--- NOTE | 2024-02-28 19:23 | ER ---
Nurse's Notes [facility] Name: Mare Almonte Age: 29 yrs Sex: Female : 1995 Arrival Date: 02/28/2024 Time: 16:06 Bed 15 Private MD: Diagnosis: Nausea with vomiting, unspecified;Abdominal pain, unspecified;Hypokalemia Presentation: 02/27 16:18 Chief complaint: Patient states: n/v feeling lightheaded and dehydrated. Coronavirus as6 screen: At this time, the client does not indicate any symptoms associated with coronavirus-19. Ebola Screen: No symptoms or risks identified at this time. Initial Sepsis Screen: Does the patient meet any 2 criteria? No. Patient's initial sepsis screen is negative. Does the patient have a suspected source of infection? No. Patient's initial sepsis screen is negative. Risk Assessment: Do you want to hurt yourself or someone else? Patient reports no desire to harm self or others. Onset of symptoms was February 25, 2024. 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 - Infectious Disease History:: Denies. - Social history:: Smoking status: Reported history of juuling and/or vaping. Screenin:[address] [facility] ED Fall Risk Assessment (Adult) History of falling in the last 3 months, nj1 including since admission No falls in past 3 months (0 pts) Confusion or Disorientation No (0 pts) Intoxicated or Sedated No (0 pts) Impaired Gait No (0 pts) Mobility Assist Device Used No (0 pt) Altered Elimination No (0 pt) Score/Fall Risk Level 0 - 2 = Low Risk Oriented to surroundings, Maintained a safe environment, Hourly rounding (assess needs \T\ fall precautionary measures) done. Abuse screen: Denies threats or abuse. Denies injuries from another. Nutritional screening: No deficits noted. Tuberculosis screening: No symptoms or risk factors identified. Assessment: 16:45 General: Appears in no apparent distress. comfortable, Behavior is calm, cooperative, nj1 appropriate for age. Pain: Complains of pain in abdomen Pain currently is 7 out of 10 on a pain scale. 16:45 Neuro: Level of Consciousness is awake, alert, obeys commands, Oriented to person, nj1 place, time, situation. Cardiovascular: Patient's skin is warm and dry. Respiratory: Airway is patent Respiratory effort is even, unlabored. GI: Reports upper abdominal pain, nausea, vomiting, Patient currently denies diarrhea. 17:19 Reassessment: Patient appears in no apparent distress at this time. Patient and/or nj1 family updated on plan of care and expected duration. Pain level reassessed. Patient is alert, oriented x 3, equal unlabored respirations, skin warm/dry/pink. 18:36 Reassessment: Patient appears in no apparent distress at this time. Patient and/or nj1 family updated on plan of care and expected duration. Pain level reassessed. Patient is alert, oriented x 3, equal unlabored respirations, skin warm/dry/pink. GI: Reports nausea. 19:30 Reassessment: Patient and/or family updated on plan of care and expected duration. Pain ha1 level reassessed. Patient is alert, oriented x 3, equal unlabored respirations, skin warm/dry/pink. Patient states feeling better. Patient states symptoms have improved. Neuro: Level of Consciousness is awake, alert, obeys commands, Oriented to person, place, time, situation. Vital Signs: 16:16 BP 125 / 65; Pulse 59; Resp 18; Temp 98.4; Pulse Ox 100% ; Weight 58.97 kg; Height 5 as6 ft. 3 in. ; Pain 10/10; 17:18 BP 109 / 71; Pulse 46; Resp 16; Pulse Ox 98% on R/A; nj1 18:35 BP 108 / 71; Pulse 49; Resp 16; Pulse Ox 99% ; Pain 7/10; nj1 19:30 BP 110 / 65; Pulse 60; Resp 18; Pulse Ox 100% ; ha1 16:16 Body Mass Index 23.03 (58.97 kg, 160.02 cm) as6 16:16 Pain Scale: Adult as6 18:35 Pain Scale: Adult nj1 ED Course: 16:09 Patient arrived in ED. mg5 16:10 Cory Cisneros PA is PHCP. cp 16:10 Chad Atkins DO is Attending Physician. cp 16:16 Cassie Roach, AMBER is Primary Nurse. nj1 16:16 Arm band placed on. as6 16:19 Triage completed. as6 16:28 Radiology exam delayed due to lab results not completed at this time. (BUN/Creatinine) nj test not completed at this time. IV insertion attempt and/or patient not having appropriate IV at this time. 16:45 Inserted saline lock: 20 gauge in right antecubital area, using aseptic technique. nj1 Blood collected. 17:00 Patient has correct armband on for positive identification. Bed in low position. Call nj1 light in reach. Side rails up X 1. Provided Education on: call light, fall precautions. Client placed on continuous cardiac and pulse oximetry monitoring. NIBP monitoring applied. 17:39 CT Abd/Pelvis - IV Contrast Only In Process Unspecified. EDMS 19:00 Report given to Luz CLARK. nj1 19:45 No provider procedures requiring assistance completed. IV discontinued, intact, ha1 bleeding controlled, No redness/swelling at site. Pressure dressing applied. Administered Medications: 16:45 Drug: NS 0.9% IV 1000 ml IV at 1 bolus Per protocol; 1000 mL bolus Route: IV; Rate: 1 nj1 bolus; Site: right antecubital; 19:45 Follow up: Response: No adverse reaction; IV Status: Completed infusion; IV Intake: ha1 1000ml 16:45 Drug: Ondansetron IVP 4 mg IVP once; over 2 minutes Route: IVP; Site: right antecubital;nj1 17:22 Follow up: Response: No adverse reaction nj1 16:47 Drug: Pantoprazole IVP 40 mg IVP once Route: IVP; Site: right antecubital; nj1 17:22 Follow up: Response: No adverse reaction nj1 16:48 Drug: morphine IVP or IV 2 mg IVP once over 4 mins Route: IVP; Infused Over: 4 mins; nj1 Site: right antecubital; 17:21 Follow up: Response: No adverse reaction; Pain is decreased nj1 19:12 Drug: Ondansetron IVP 4 mg IVP once; over 2 minutes Route: IVP; Site: right antecubital;nj1 19:48 Follow up: Response: No adverse reaction; Marked relief of symptoms; Nausea is decreasedha1 19:40 Drug: Potassium PO Effervescent Tablet 50 mEq PO once; dissolve in 4 ounces of water or ha1 juice Route: PO; 19:47 Follow up: Response: No adverse reaction ha1 19:40 Drug: morphine IVP or IV 2 mg IVP once over 4 mins Route: IVP; Infused Over: 4 mins; ha1 Site: right antecubital; 19:47 Follow up: Response: No adverse reaction; Pain is decreased; RASS: Alert and Calm (0) ha1 Medication: 19:47 VIS not applicable for this client. ha1 Intake: 19:45 IV: 1000ml; Total: 1000ml. ha1 Outcome: 19:23 Discharge ordered by . cp 19:46 Discharged to home ambulatory, with family, ha1 19:46 Condition: stable 19:46 Discharge instructions given to patient, Instructed on discharge instructions, follow up and referral plans. medication usage, Demonstrated understanding of instructions, follow-up care, medications, Prescriptions given X 2, 19:48 Patient left the ED. ha1 Signatures: Dispatcher [employer] EDMS Cory Cisneros PA PA cp Jordan, Nathan nj Slawson, Ashby, RN RN as6 Luz Mccormick RN RN ha1 Cassie Roach RN RN nj1 Emely Huizar mg5 Corrections: (The following items were deleted from the chart) 19:44 11:40 Potassium PO Effervescent Tablet 50 mEq PO ha1 ha1 19:51 19:49 IV Status: Completed infusion ha1 ha1
--- NOTE | 2024-02-28 19:23 | EDPHYS ---
Physician Documentation [facility] Name: Mare Almonte Age: 29 yrs Sex: Female : 1995 Arrival Date: 02/28/2024 Time: 16:06 Bed 15 Private MD: ED Physician Chad Atkins HPI: 02/27 16:33 This 29 yrs old Female presents to ER via Ambulatory with complaints of cp Nausea/Vomiting. 16:33 The patient presents to the emergency department with nausea, that is moderate, cp vomiting, that is intermittent. 16:33 Onset: The symptoms/episode began/occurred 3 day(s) ago. cp 16:33 Possible causes: unknown. Associated signs and symptoms: Pertinent positives: abdominal cp pain, anorexia, Pertinent negatives: diarrhea, fever, GI bleeding. Severity of symptoms: in the emergency department the symptoms are unchanged despite home interventions. 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 - Infectious Disease History:: Denies. - Social history:: Smoking status: Reported history of juuling and/or vaping. ROS: 16:35 Constitutional: Negative for fever, cp 16:35 Cardiovascular: Negative for chest pain, palpitations, cp 16:35 Eyes: Negative for injury, pain, redness, and discharge, cp 16:35 ENT: Negative for drainage from ear(s), ear pain, difficulty swallowing, difficulty handling secretions, 16:35 Respiratory: Negative for cough, shortness of breath, wheezing, 16:35 Abdomen/GI: Positive for abdominal pain, nausea and vomiting, anorexia, Negative for diarrhea, constipation, hematemesis, 16:35 : Negative for hematuria, vaginal bleeding, vaginal discharge, 16:35 Neuro: Negative for altered mental status, syncope, 16:35 All other systems are negative, Exam: 16:40 Constitutional: The patient appears in no acute distress, alert, awake, non-toxic, well cp developed, well nourished, uncomfortable, 16:40 Head/Face: Normocephalic, atraumatic. cp 16:40 Eyes: Periorbital structures: appear normal, Conjunctiva: normal, no exudate, no injection, Sclera: no appreciated abnormality, Lids and lashes: appear normal, bilaterally, 16:40 ENT: External ear(s): are unremarkable, Nose: is normal, Mouth: Lips: moist, Oral mucosa: pink and intact, moist, Posterior pharynx: Airway: no evidence of obstruction, patent, 16:40 Chest/axilla: Inspection: normal, 16:40 Cardiovascular: Rate: bradycardic, Rhythm: regular, 16:40 Respiratory: the patient does not display signs of respiratory distress, Respirations: normal, no use of accessory muscles, no retractions, labored breathing, is not present, Breath sounds: are clear throughout, no decreased breath sounds, no stridor, no wheezing, 16:40 Abdomen/GI: Inspection: abdomen appears normal, Bowel sounds: active, all quadrants, Palpation: soft, in all quadrants, moderate abdominal tenderness, in the epigastric area, right upper quadrant and left upper quadrant, rebound tenderness, is not appreciated, involuntary guarding, is not appreciated, 16:40 Back: CVA tenderness, is absent, 16:40 Neuro: Orientation: to person, place \T\ time. Mentation: is normal, Cerebellar function: is grossly normal, Motor: moves all fours, strength is normal, Sensation: is normal, Vital Signs: 16:16 BP 125 / 65; Pulse 59; Resp 18; Temp 98.4; Pulse Ox 100% ; Weight 58.97 kg; Height 5 as6 ft. 3 in. ; Pain 10/10; 17:18 BP 109 / 71; Pulse 46; Resp 16; Pulse Ox 98% on R/A; nj1 18:35 BP 108 / 71; Pulse 49; Resp 16; Pulse Ox 99% ; Pain 7/10; nj1 19:30 BP 110 / 65; Pulse 60; Resp 18; Pulse Ox 100% ; ha1 16:16 Body Mass Index 23.03 (58.97 kg, 160.02 cm) as6 16:16 Pain Scale: Adult as6 18:35 Pain Scale: Adult nj1 MDM: 16:10 Patient medically screened. cp 17:00 Differential diagnosis: gastritis, cholecystitis, pancreatitis, appendicitis, viral cp gastroenteritis, gastroenteritis. 19:22 Data reviewed: vital signs, nurses notes, lab test result(s), radiologic studies, CT cp scan, and as a result, I will discharge patient. 19:22 I considered the following discharge prescriptions or medication management in the emergency department Medications were administered in the Emergency Department. See MAR. Counseling: I had a detailed discussion with the patient and/or guardian regarding the historical points, exam findings, and any diagnostic results supporting the discharge/admit diagnosis, lab results, radiology results, to return to the emergency department if symptoms worsen or persist or if there are any questions or concerns that arise at home. Response to treatment: the patient's symptoms have markedly improved after treatment, vomiting resolved, pain improved and patient tolerating po fluids, and as a result, I will discharge patient. 02/27 16:26 Order name: CBC with Diff; Complete Time: 18:10 02/27 18:11 Interpretation: Normal except: ELVIN% 87.9; LYM% 8.7; MN% 2.6; NEUT A 8.5. 02/27 16:26 Order name: CMP; Complete Time: 18:10 02/27 18:11 Interpretation: Normal except: NA 133; K 3.1; CL 96; GLUC 122; AST 14; TP 8.4; GLOB cp 4.1; A/G 1.0. 02/27 16:26 Order name: Lipase; Complete Time: 18:10 02/27 16:26 Order name: Test, Urine; Complete Time: 18:10 02/27 16:26 Order name: Urinalysis w/ reflexes; Complete Time: 18:10 02/27 19:17 Interpretation: Normal except: [facility] Extremely Turbid; Urine SG > 1.030; UBILI 1+; UKET cp 4+ (Over); UBLD 2+; UPROT 3+; UUROB 1+; UESTR 75; UWBC 10-20; URBC 21-50; MUCUS 4+. 02/27 17:22 Order name: Urine Culture [facility] 02/27 17:39 Order name: CBC Smear Scan; Complete Time: 18:10 [facility] 02/27 16:26 Order name: CT Abd/Pelvis - IV Contrast Only; Complete Time: 18:39 02/27 16:26 Order name: IV Saline Lock; Complete Time: 16:55 02/27 16:26 Order name: Labs collected and sent; Complete Time: 16:55 02/27 18:48 Order name: PO challenge; Complete Time: 19:43 cp Administered Medications: 16:45 Drug: NS 0.9% IV 1000 ml IV at 1 bolus Per protocol; 1000 mL bolus Route: IV; Rate: 1 nj1 bolus; Site: right antecubital; 19:45 Follow up: Response: No adverse reaction; IV Status: Completed infusion; IV Intake: ha1 1000ml 16:45 Drug: Ondansetron IVP 4 mg IVP once; over 2 minutes Route: IVP; Site: right antecubital;nj1 17:22 Follow up: Response: No adverse reaction nj1 16:47 Drug: Pantoprazole IVP 40 mg IVP once Route: IVP; Site: right antecubital; nj1 17:22 Follow up: Response: No adverse reaction nj1 16:48 Drug: morphine IVP or IV 2 mg IVP once over 4 mins Route: IVP; Infused Over: 4 mins; nj1 Site: right antecubital; 17:21 Follow up: Response: No adverse reaction; Pain is decreased nj1 19:12 Drug: Ondansetron IVP 4 mg IVP once; over 2 minutes Route: IVP; Site: right antecubital;nj1 19:48 Follow up: Response: No adverse reaction; Marked relief of symptoms; Nausea is decreased1 19:40 Drug: Potassium PO Effervescent Tablet 50 mEq PO once; dissolve in 4 ounces of water or ha1 juice Route: PO; 19:47 Follow up: Response: No adverse reaction 1 19:40 Drug: morphine IVP or IV 2 mg IVP once over 4 mins Route: IVP; Infused Over: 4 mins; ha1 Site: right antecubital; 19:47 Follow up: Response: No adverse reaction; Pain is decreased; RASS: Alert and Calm (0) ha1 Disposition: 20:06 I was immediately available on-site in the Emergency Department for consultation in the me3 care of the patient. Disposition Summary: 02/28/24 19:23 Discharge Ordered Notes: Location: Home cp Problem: new cp Symptoms: have improved cp Condition: Stable cp Diagnosis - Nausea with vomiting, unspecified cp - Abdominal pain, unspecified cp - Hypokalemia cp Followup: cp - With: Private Physician - When: 2 - 3 days - Reason: Recheck today's complaints Discharge Instructions: - Discharge Summary Sheet cp - Abdominal Pain, Adult cp - Nausea and Vomiting, Adult cp - Hypokalemia cp Forms: - Medication Reconciliation Form cp - Antibiotic Education cp - Prescription Opioid Use cp - Patient Portal Instructions cp - Leadership Thank You Letter cp Prescriptions: - Protonix 40 mg Oral Tablet - take 1 tablet ORAL route once daily; 30 tablet; Refills: 0, Product Selection cp Permitted - Zofran 4 mg Oral Tablet - take 1 tablet ORAL route every 12 hours As needed; 20 tablet; Refills: 0, cp Product Selection Permitted Signatures: Dispatcher [employer] EDMS Cory Cisneros PA PA cp Sims, Marcus, DO ms3 Feliciano Hancock RN RN as6 Luz Mccormick RN RN ha1 Cassie Roach RN RN nj1
[2024-02-28] MEDS ORDERED: POTASSIUM 25 MEQ EFFERV TAB ONE (19:34)
[2024-02-28 19:59] VITALS: BP 110/65; TEMP 98.4; O2SAT 100
== END 2024-02-28 19:48 | disposition home or self-care (01) ==
LOC: ER 16:06
DX: E87.6 Hypokalemia (principal); R10.9 Unspecified abdominal pain
CPT/HCPCS: 96361; 87088; 85025; 81001; 87086; 36415; 81025; 83690; 80053; 74177; 96375; 96374; 99284; Q9967; C9113; J2270 ×2; J2405 ×2; J7030

== ENCOUNTER 2025-02-10 15:41 | Emergency (ER) | payer OTHER, SELFPAY ==
--- NOTE | 2025-02-10 16:30 | RAD REPORT ---
Procedure: Chest Pa And Lat (2 Views) HISTORY: Chest pain COMPARISON: 2013 FINDINGS: The lungs appear clear of acute infiltrate. No significant pleural effusion noted. The heart is normal size. IMPRESSION: No acute abnormality is displayed.
[2025-02-10] MEDS ORDERED: HYDROCODONE/APAP 5/325 MG TAB ONE (16:46)
[2025-02-10] MEDS ORDERED: PHENAZOPYRIDINE 100MG TAB PO ONE (16:46)
[2025-02-10] MEDS ORDERED: KETOROLAC 30 MG/ML INJ ONE (16:46)
[2025-02-10 17:36] LABS: Specific Gravity > 1.030 (1.005-1.030); Sqamous Epithelial >50 /HPF (None Seen); Urine Bacteria 20-50 /HPF (<20); Urine Bilirubin NEGATIVE (Negative); Urine Blood 3+ (Negative); Urine Clarity Extremely Turbid (Clear); Urine Color Light-Orange (Yellow); Urine Crystals Unidentified Few /HPF (None Seen); Urine Culture Reflex Order REFLEXED; Urine Glucose NEGATIVE (Negative); Urine Ketones NEGATIVE (Negative); Urine Microscopic Reflex YN ORDER UMIC; Urine Mucus 3+ /HPF (None Seen); Urine Nitrite NEGATIVE (Negative); Urine Protein 3+ (Negative); Urine RBC >50 /HPF (None Seen); Urine Urobilinogen 2+ (Normal); Urine WBC >50 /HPF (<5); Urine pH 6.5 (5.0-7.0)
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
[2025-02-10] MEDS ORDERED: CEFTRIAXONE 1000 MG/VIAL ONE (17:58)
[2025-02-10] MEDS ORDERED: LIDOCAINE 1% MPF 2 ML AMPULE ONE (17:58)
== END 2025-02-10 18:07 | disposition home or self-care (01) ==
LOC: ER 15:41
DX: N39.0 Urinary tract infection, site not specified (principal)
CPT/HCPCS: 71046; 81001; 87077; 87086; 87088; 87186; 96372; 99284; J0696